=== PATIENT | female | born 1980 | race Caucasian/White ===

== ENCOUNTER 2019-03-28 16:13 | Inpatient (IN) | payer OTHER ==
[~2019-03-28] VITALS: Ht 154.9 cm; Wt 72.0 kg
[2019-03-28] MEDS ORDERED: LIDOCAINE/MYLANTA 40 ML BTL PO STA (17:31)
[2019-03-28] MEDS ORDERED: SOD CHLORIDE 0.9% 1,000 ML IV STA (17:31)
[2019-03-28] MEDS ORDERED: BELLADONNA/PHENOBARBITAL TAB PO STA (17:31)
[2019-03-28] MEDS ORDERED: PYRIDOXINE 50 MG TAB PO ONE (18:00)
[2019-03-28] MEDS ORDERED: ONDANSETRON 4 MG INJ IV STA (19:06)
[2019-03-28] MEDS ORDERED: SOD CHLORIDE 0.9% 1,000 ML IV SCH (19:21)
[2019-03-28] MEDS ORDERED: ACETAMINOPHEN 325 MG TAB PO PRN (19:30)
[2019-03-28] MEDS ORDERED: NACL 0.9% 3 ML SYG IV SCH (19:30)
[2019-03-28] MEDS: METOCLOPRAMIDE 10 MG INJ IV PRN (19:40)
[2019-03-28 20:49] VITALS: Ht 154.9 cm; Wt 72.0 kg
[2019-03-28] MEDS: FAMOTIDINE 20 MG INJ IV SCH (20:55)
[2019-03-28 21:48] VITALS: BP 102/57; PULSE 83; RESP 16
[2019-03-28] MEDS: AL HYDROX/MG HYDROX/SIMETH 30 ML CUP PO PRN (22:02)
--- NOTE | 2019-03-28 23:16 | ERD ---
ER Documentation Chief Complaint Chief Complaint hematemesis x3 days, 11 wks . seen @ [place], referred for admit HPI This is a 39-year-old woman 11 weeks by dates and normal ultrasound performed this morning at another emergency department presenting with continued nausea and vomiting. She states today she has had a couple episodes of pain, blood-tinged emesis. She was seen and evaluated a multiple different EDs over the last few days and states she has received multiple doses of Phenergan, Reglan, Zofran without relief. She denies hematuria or dysuria, no back pain, no fevers or chills, no chest pain or shortness of breath. She does complain of some mild epigastric burning with episodes of vomiting. ROS All systems reviewed and are negative except as per history of present illness. Allergies Allergies: Coded Allergies: No Known Allergy (Unverified , 03/28/19) PMhx/Soc Medical and Surgical Hx: pt denies Medical Hx History of Surgery: Yes (COSMETIC ) Anesthesia Reaction: No Hx Alcohol Use: No Hx Substance Use: No Hx Tobacco Use: No Smoking Status: Never smoker FmHx Family History: No diabetes Physical Exam Vitals Vital Signs Date Temp Pulse Resp B/P (MAP) Pulse Ox O2 O2 Flow FiO2 Time Delivery Rate 03/28/19 62 20 133/62 100 Room Air 18:52 (85) 03/28/19 99.1 61 18 151/68 97 16:18 (95) Physical Exam GENERAL: Well-developed, well-nourished, well-hydrated, appears nauseous, afebrile HEENT: Moist mucous membranes, pink conjunctiva, no cervical spine tenderness or step-off deformities, no goiter, no jaundice or icterus, extraocular movements intact without pain. CARDIAC: Regular rate and rhythm, no murmurs rubs or gallops LUNGS: Clear bilaterally no wheezing crackles or stridor ABDOMEN: Soft nontender, no guarding, no rigidity, no rebound, no psoas sign no obturator sign. SKIN: Warm and dry to touch, no abrasions, contusions, or hematomas, no lacerations, no ecchymosis, no target lesions, and without ulcers EXTREMITIES: No clubbing cyanosis or edema, calves are bilaterally symmetrical, no Homans sign, no popliteal cord sign. Distal pulses equal and bilateral PSYCH: Normal affect without agitation or irritability Result Diagram: 03/28/19183103/28/191831 Results 24 hrs Laboratory Tests Test 03/28/19 18:00 03/28/19 18:25 03/28/19 18:32 POC Beta HCG, Qualitative POSITIVE Urine Color G[place] Urine Clarity SLIGHTLY CLOUDY Urine pH 6.0 Urine Specific [place] 1.030 Urine Ketones 2+ mg/dL Urine Nitrite NEGATIVE mg/dL Urine Bilirubin NEGATIVE mg/dL Urine Urobilinogen NEGATIVE mg/dL Urine Leukocyte Esterase NEGATIVE [place]/ul Urine Microscopic RBC 54 /HPF Urine Microscopic WBC 5 /HPF Urine Squamous Epithelial Cells FEW /HPF Urine Mucus MODERATE /HPF Urine Hemoglobin 2+ mg/dL Urine Glucose 1+ mg/dL Urine Total Protein 2+ mg/dl White Blood Count 12.6 10^3/ul Red Blood Count 3.95 10^6/ul Hemoglobin 11.5 g/dl Hematocrit 33.2 % Mean Corpuscular Volume 84.1 fl Mean Corpuscular Hemoglobin 29.1 pg Mean Corpuscular 34.6 g/dl Hemoglobin Concent Red Cell Distribution Width 12.9 % Platelet Count 198 10^3/UL Mean Platelet Volume 11.6 fl Immature Granulocytes % 0.800 % Neutrophils % 86.2 % Lymphocytes % 8.5 % Monocytes % 4.3 % Eosinophils % 0.0 % Basophils % 0.2 % Nucleated Red Blood Cells % 0.0 /100WBC Immature Granulocytes # 0.100 10^3/ul Neutrophils # 10.9 10^3/ul Lymphocytes # 1.1 10^3/ul Monocytes # 0.5 10^3/ul Eosinophils # 0.0 10^3/ul Basophils # 0.0 10^3/ul Nucleated Red Blood Cells # 0.0 10^3/ul Sodium Level 139 mmol/L Potassium Level 3.8 mmol/L Chloride Level 109 mmol/L Carbon Dioxide Level 19 mmol/L Anion Gap 11 Blood Urea Nitrogen 8 mg/dl Creatinine 0.49 mg/dl Est Glomerular Filtrat > 60 mL/min Rate mL/min Glucose Level 139 mg/dl Calcium Level 8.8 mg/dl Total Bilirubin 0.4 mg/dl Direct Bilirubin 0.00 mg/dl Indirect Bilirubin 0.4 mg/dl Aspartate Amino Transf (AST/SGOT) 52 IU/L Alanine 43 IU/L Aminotransferase (ALT/SGPT) Alkaline Phosphatase 35 IU/L Total Protein 7.6 g/dl Albumin 3.9 g/dl Globulin 3.70 g/dl Albumin/Globulin Ratio 1.05 Lipase 27 U/L Current Medications Medications Dose Sig/Robyn Start Time Status Last (Trade) Ordered Route PRN Stop Time Admin Dose Reason Admin Pyridoxine 50 mg ONCE ONCE 03/28/19 DC 03/28/19 HCl PO 18:00 03/28/19 18:11 (Vitamin B6) 18:01 Sodium 1,000 ml @ Q1H STAT 03/28/19 DC 03/28/19 Chloride 1,000 mls/hr IV 17:31 03/28/19 18:12 18:30 40 ml ONCE STAT 03/28/19 DC 03/28/19 Miscellaneous PO 17:31 03/28/19 18:01 Medication 17:38 (Gi Cocktail (2)) Bell[place]onna/ 2 tab ONCE STAT 03/28/19 DC 03/28/19 Phenobarbital PO 17:31 03/28/19 18:01 () 17:38 Ondansetron 4 mg ONCE STAT 03/28/19 DC HCl (Zofran IV 19:06 03/28/19 Inj) 19:21 Sodium 1,000 ml @ Q20H IV 03/28/19 03/28/19 Chloride 50 mls/hr 19:21 03/29/19 20:51 15:20 Procedures/MDM IV line was established 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 Patient was afebrile I administered pyridoxine 50 mg p.o., a liter normal saline IV, and a GI cocktail p.o. CBC and electrolytes were unremarkable, liver function test within normal limits, test positive, urinalysis negative for infection. Patient symptoms did improve with above therapy although she had a couple more episodes of nausea and vomiting and I did order Zofran IV although patient refused because she states it has been helping her over the last few days. Patient will be admitted to [facility] for continued IV hydration and antiemetic therapy. Patient refused nasogastric tube Departure Diagnosis: Primary Impression: Hyperemesis gravidarum Additional Impressions: Intractable vomiting Vomiting type: unspecified Nausea presence: with nausea Qualified Codes: R11.2 - Nausea with vomiting, unspecified First trimester Ruled Out: Hematemesis Condition: Fair ZOHRABIAN,KEATON MD Mar 28, 2019 23:16
[2019-03-29] MEDS ORDERED: PROMETHAZINE (1.25 MG/ML) 5 ML CUP PO ONE (01:30)
[2019-03-29] MEDS ORDERED: ONDANSETRON 4 MG INJ IV PRN ×2 (01:30→18:00)
[2019-03-29] MEDS: METOCLOPRAMIDE 10 MG INJ IV PRN ×3 (02:07→17:46)
[2019-03-29 02:31] VITALS: BP 136/75; PULSE 60; RESP 18
[2019-03-29] MEDS: AL HYDROX/MG HYDROX/SIMETH 30 ML CUP PO PRN ×2 (05:37→17:46)
--- NOTE | 2019-03-29 06:23 | HP ---
Date/Time of Note Date/Time of Note DATE: 03/29/19 TIME: 06:20 Assessment/Plan VTE Prophylaxis Pharmacological prophylaxis: heparin Lines/Catheters IV Catheter Type (from Nrs): Peripheral IV Urinary Cath still in place: No Assessment/Plan Assessment/Plan 39-year-old female who is 11 weeks here with nausea and vomiting, most likely related to 1. Nausea/vomiting, -induced -Antiemetics -IV hydration 2. Leukocytosis: UA negative -Check urine culture -No empiric antibiotic at this time Result Diagram: 03/29/19 0510 03/28/19 1832 Results 24hrs Laboratory Tests Test 03/28/19 18:00 03/28/19 18:25 03/28/19 18:32 03/29/19 05:10 POC Beta HCG, POSITIVE H Qualitative Urine Color GORDON Urine Clarity SLIGHTLY CLOUDY A Urine pH 6.0 Urine Specific 1.030 [place] Urine Ketones 2+ H Urine Nitrite NEGATIVE Urine Bilirubin NEGATIVE Urine Urobilinogen NEGATIVE Urine Leukocyte NEGATIVE Esterase Urine Microscopic 54 H RBC Urine Microscopic 5 WBC Urine Squamous FEW Epithelial Cells Urine Mucus MODERATE Urine Hemoglobin 2+ H Urine Glucose 1+ H Urine Total 2+ H Protein White Blood Count 12.6 H 14.2 H Red Blood Count 3.95 L 3.64 L Hemoglobin 11.5 L 10.6 L Hematocrit 33.2 L 30.0 L Mean Corpuscular 84.1 82.4 Volume Mean Corpuscular 29.1 29.1 Hemoglobin Mean Corpuscular 34.6 35.3 Hemoglobin Concent Red Cell 12.9 13.1 Distribution Width Platelet Count 198 216 Mean Platelet 11.6 H 12.0 H Volume Immature 0.800 H 0.600 H Granulocytes % Neutrophils % 86.2 H 85.6 H Lymphocytes % 8.5 L 9.5 L Monocytes % 4.3 4.2 Eosinophils % 0.0 0.0 Basophils % 0.2 0.1 Nucleated Red 0.0 0.0 Blood Cells % Immature 0.100 H 0.080 H Granulocytes # Neutrophils # 10.9 H 12.1 H Lymphocytes # 1.1 1.3 Monocytes # 0.5 0.6 Eosinophils # 0.0 0.0 Basophils # 0.0 0.0 Nucleated Red 0.0 0.0 Blood Cells # Sodium Level 139 Potassium Level 3.8 Chloride Level 109 Carbon Dioxide 19 L Level Anion Gap 11 Blood Urea 8 Nitrogen Creatinine 0.49 Est Glomerular > 60 Filtrat Rate mL/min Glucose Level 139 Calcium Level 8.8 Total Bilirubin 0.4 Direct Bilirubin 0.00 Indirect Bilirubin 0.4 Aspartate Amino 52 H Transf (AST/SGOT) Alanine 43 Aminotransferase ( ALT/SGPT) Alkaline 35 L Phosphatase Total Protein 7.6 Albumin 3.9 Globulin 3.70 H Albumin/Globulin 1.05 Ratio Lipase 27 HPI/ROS Admit Date/Time Admit Date/Time Mar 28, 2019 at 19:22 Hx of Present Illness Patient is a 39-year-old female who is 11 weeks who presents the ER complaining of nausea and vomiting x1 months. She was initially seen at [facility] where ultrasound was done which showed 11 weeks gestation. Sh e was sent to our ER because of insurance reason. Denied abdominal pain, fever/chills, shortness of breath. PMH/Family/Social Past Medical History Past Surgical Hx: other Family History Significant Family History: no pertinent family hx Social History Alcohol Use: none Smoking Status: Never smoker Drug Use: none Exam Constitutional: other (No acute distress) Head: normocephalic, atraumatic Eyes: EOMI, PERRL Respiratory: clear to auscultation, normal air movement Cardiovascular: regular rate and rhythm Gastrointestinal: soft Extremities: normal pulses Medications Current Medications Sodium Chloride 1,000 ml @ 50 mls/hr Q20H IV Last administered on 03/28/19at 20:51; Admin Dose 50 MLS/HR; Start 03/28/19 at 19:21; Stop 03/29/19 at 15:20 IV Flush (NS 3 ml) 3 ml PER PROTOCOL IV ; Start 03/28/19 at 19:30 Metoclopramide HCl (Reglan) 10 mg Q6H PRN IV NAUSEA/VOMITING Last administered on 03/29/19at 02:07; Admin Dose 10 MG; Start 03/28/19 at 19:30 Acetaminophen (Tylenol Tab) 650 mg Q6H PRN PO .PAIN 1-3 OR TEMP; Start 03/28/19 at 19:30 Famotidine (Pepcid Iv) 20 mg BID IV Last administered on 03/28/19at 20:55; Admin Dose 20 MG; Start 03/28/19 at 21:00 Al Hydrox/Mg Hydrox/Simethicone (Mag-Al Plus) 30 ml Q6H PRN PO GASTROINTESTINAL UPSET Last administered on 03/29/19at 05:37; Admin Dose 30 ML; Start 03/28/19 at 22:00; Stop 03/29/19 at 22:00 Ondansetron HCl (Zofran Inj) 4 mg Q6H PRN IV NAUSEA AND/OR VOMITING; Start 03/29/19 at 01:30; Stop 03/30/19 at 01:29 Coded Allergies: No Known Allergy (Unverified , 03/28/19) Social History Smoking Status: Former smoker Exam/Review of Systems Vital Signs Vitals Vital Signs Date Temp Pulse Resp B/P (MAP) Pulse Ox O2 O2 Flow FiO2 Time Delivery Rate 03/29/19 98.6 60 18 136/75 98 02:31 (95) 03/28/19 Room Air 21:48 Intake and Output 03/28/19 03/28/19 03/29/19 1515:00 23:00 07:00 IntakeIntake Total 450 ml BalanceBalance 450 ml RAYMOND BOWENS MD Mar 29, 2019 06:23
[2019-03-29 08:36] VITALS: BP 139/89; PULSE 62; RESP 15
[2019-03-29] MEDS: FAMOTIDINE 20 MG INJ IV SCH ×2 (10:19→21:21)
[2019-03-29 13:57] VITALS: BP 139/81; PULSE 62; RESP 16
--- NOTE | 2019-03-29 18:00 | PN ---
Date/Time of Note Date/Time of Note DATE: 03/29/19 TIME: 17:57 Assessment/Plan VTE [place]axis [place] [facility] [place]: 1 [place] [facility] [place] Yes SCD contraindicated: low risk/ambulating Pharmacological prophylaxis: NA/contraindicated Pharm contraindication: low risk/ambulating Lines/Catheters IV [facility] Type [facility] Peripheral IV Urinary Cath still in place: No Assessment/Plan Hospital Course Hospitalist coverage Assessment and plan 1. Vomiting, consider hyperemesis gravidarum syndrome vs gerd. Stable consulted OB -Plan is Zofran, Unison 25mg hs w B6 100 mg; and Unison 1/2 tab q am prn; and banana bag 2. Mild abnormal LFTs, consider Ward check hepatitis panel 3. Past tobacco 4. Anemia S: nausea vomiting, not tolerating diet. Had a little little bit of cheesecake this morning. No fever mild flatus no dyspnea. First . O: Vital signs stable Physical exam No pallor icterus Regular Clear Benign gravid? No rigidity rebound guarding no flank ecchymosis No edema Result Diagram: 03/29/19 0510 03/29/19 0509 Results 24hrs Laboratory Tests Test 03/28/19 18:00 03/28/19 18:25 03/28/19 18:32 03/29/19 05:09 POC Beta HCG, POSITIVE H Qualitative Urine Color GORDON Urine Clarity SLIGHTLY CLOUDY A Urine pH 6.0 Urine Specific 1.030 [place] Urine Ketones 2+ H Urine Nitrite NEGATIVE Urine Bilirubin NEGATIVE Urine Urobilinogen NEGATIVE Urine Leukocyte NEGATIVE Esterase Urine Microscopic 54 H RBC Urine Microscopic 5 WBC Urine Squamous FEW Epithelial Cells Urine Mucus MODERATE Urine Hemoglobin 2+ H Urine Glucose 1+ H Urine Total 2+ H Protein White Blood Count 12.6 H Red Blood Count 3.95 L Hemoglobin 11.5 L Hematocrit 33.2 L Mean Corpuscular 84.1 Volume Mean Corpuscular 29.1 Hemoglobin Mean Corpuscular 34.6 Hemoglobin Concent Red Cell 12.9 Distribution Width Platelet Count 198 Mean Platelet 11.6 H Volume Immature 0.800 H Granulocytes % Neutrophils % 86.2 H Lymphocytes % 8.5 L Monocytes % 4.3 Eosinophils % 0.0 Basophils % 0.2 Nucleated Red 0.0 Blood Cells % Immature 0.100 H Granulocytes # Neutrophils # 10.9 H Lymphocytes # 1.1 Monocytes # 0.5 Eosinophils # 0.0 Basophils # 0.0 Nucleated Red 0.0 Blood Cells # Sodium Level 139 136 Potassium Level 3.8 3.3 L Chloride Level 109 108 Carbon Dioxide 19 L 18 L Level Anion Gap 11 10 Blood Urea 8 7 Nitrogen Creatinine 0.49 0.49 Est Glomerular > 60 > 60 Filtrat Rate mL/min Glucose Level 139 133 Calcium Level 8.8 8.6 Total Bilirubin 0.4 0.4 Direct Bilirubin 0.00 0.00 Indirect Bilirubin 0.4 0.4 Aspartate Amino 52 H 92 H Transf (AST/SGOT) Alanine 43 79 H Aminotransferase ( ALT/SGPT) Alkaline 35 L 38 L Phosphatase Total Protein 7.6 6.7 Albumin 3.9 3.5 Globulin 3.70 H 3.20 Albumin/Globulin 1.05 1.09 Ratio Lipase 27 Hemoglobin A1c 5.2 Magnesium Level 2.3 Triglycerides 84 Level Cholesterol Level 183 LDL Cholesterol, 96 Calculated HDL Cholesterol 70 Cholesterol/HDL 2.6 Ratio Thyroid 1.240 Stimulating Hormone (TSH) Test 03/29/19 05:10 White Blood Count 14.2 H Red Blood Count 3.64 L Hemoglobin 10.6 L Hematocrit 30.0 L Mean Corpuscular 82.4 Volume Mean Corpuscular 29.1 Hemoglobin Mean Corpuscular 35.3 Hemoglobin Concent Red Cell 13.1 Distribution Width Platelet Count 216 Mean Platelet 12.0 H Volume Immature 0.600 H Granulocytes % Neutrophils % 85.6 H Lymphocytes % 9.5 L Monocytes % 4.2 Eosinophils % 0.0 Basophils % 0.1 Nucleated Red 0.0 Blood Cells % Immature 0.080 H Granulocytes # Neutrophils # 12.1 H Lymphocytes # 1.3 Monocytes # 0.6 Eosinophils # 0.0 Basophils # 0.0 Nucleated Red 0.0 Blood Cells # Exam/Review of Systems Exam Vitals Vital Signs Date Temp Pulse Resp B/P (MAP) Pulse Ox O2 O2 Flow FiO2 Time Delivery Rate 03/29/19 98.7 62 16 139/81 100 Room Air 13:57 (100) Intake and Output 03/28/19 03/28/19 03/29/19 1515:00 23:00 07:00 IntakeIntake Total 450 ml BalanceBalance 450 ml Results Results 24hrs Laboratory Tests Test 03/28/19 18:00 03/28/19 18:25 03/28/19 18:32 03/29/19 05:09 POC Beta HCG, POSITIVE H Qualitative Urine Color [place] Urine Clarity SLIGHTLY CLOUDY A Urine pH 6.0 Urine Specific 1.030 [place] Urine Ketones 2+ H Urine Nitrite NEGATIVE Urine Bilirubin NEGATIVE Urine Urobilinogen NEGATIVE Urine Leukocyte NEGATIVE Esterase Urine Microscopic 54 H RBC Urine Microscopic 5 WBC Urine Squamous FEW Epithelial Cells Urine Mucus MODERATE Urine Hemoglobin 2+ H Urine Glucose 1+ H Urine Total 2+ H Protein White Blood Count 12.6 H Red Blood Count 3.95 L Hemoglobin 11.5 L Hematocrit 33.2 L Mean Corpuscular 84.1 Volume Mean Corpuscular 29.1 Hemoglobin Mean Corpuscular 34.6 Hemoglobin Concent Red Cell 12.9 Distribution Width Platelet Count 198 Mean Platelet 11.6 H Volume Immature 0.800 H Granulocytes % Neutrophils % 86.2 H Lymphocytes % 8.5 L Monocytes % 4.3 Eosinophils % 0.0 Basophils % 0.2 Nucleated Red 0.0 Blood Cells % Immature 0.100 H Granulocytes # Neutrophils # 10.9 H Lymphocytes # 1.1 Monocytes # 0.5 Eosinophils # 0.0 Basophils # 0.0 Nucleated Red 0.0 Blood Cells # Sodium Level 139 136 Potassium Level 3.8 3.3 L Chloride Level 109 108 Carbon Dioxide 19 L 18 L Level Anion Gap 11 10 Blood Urea 8 7 Nitrogen Creatinine 0.49 0.49 Est Glomerular > 60 > 60 Filtrat Rate mL/min Glucose Level 139 133 Calcium Level 8.8 8.6 Total Bilirubin 0.4 0.4 Direct Bilirubin 0.00 0.00 Indirect Bilirubin 0.4 0.4 Aspartate Amino 52 H 92 H Transf (AST/SGOT) Alanine 43 79 H Aminotransferase ( ALT/SGPT) Alkaline 35 L 38 L Phosphatase Total Protein 7.6 6.7 Albumin 3.9 3.5 Globulin 3.70 H 3.20 Albumin/Globulin 1.05 1.09 Ratio Lipase 27 Hemoglobin A1c 5.2 Magnesium Level 2.3 Triglycerides 84 Level Cholesterol Level 183 LDL Cholesterol, 96 Calculated HDL Cholesterol 70 Cholesterol/HDL 2.6 Ratio Thyroid 1.240 Stimulating Hormone (TSH) Test 03/29/19 05:10 White Blood Count 14.2 H Red Blood Count 3.64 L Hemoglobin 10.6 L Hematocrit 30.0 L Mean Corpuscular 82.4 Volume Mean Corpuscular 29.1 Hemoglobin Mean Corpuscular 35.3 Hemoglobin Concent Red Cell 13.1 Distribution Width Platelet Count 216 Mean Platelet 12.0 H Volume Immature 0.600 H Granulocytes % Neutrophils % 85.6 H Lymphocytes % 9.5 L Monocytes % 4.2 Eosinophils % 0.0 Basophils % 0.1 Nucleated Red 0.0 Blood Cells % Immature 0.080 H Granulocytes # Neutrophils # 12.1 H Lymphocytes # 1.3 Monocytes # 0.6 Eosinophils # 0.0 Basophils # 0.0 Nucleated Red 0.0 Blood Cells # Medications Medication Current Medications IV Flush (NS 3 ml) 3 ml PER PROTOCOL IV ; Start 03/28/19 at 19:30 Acetaminophen (Tylenol Tab) 650 mg Q6H PRN PO .PAIN 1-3 OR TEMP Last administer ed on 03/29/19at 10:19; Admin Dose 650 MG; Start 03/28/19 at 19:30 Famotidine (Pepcid Iv) 20 mg BID IV Last administered on 03/29/19at 10:19; Admin Dose 20 MG; Start 03/28/19 at 21:00 Al Hydrox/Mg Hydrox/Simethicone (Mag-Al Plus) 30 ml Q6H PRN PO GASTROINTESTINAL UPSET Last administered on 03/29/19at 17:46; Admin Dose 30 ML; Start 03/28/19 at 22:00; Stop 03/29/19 at 22:00 Ondansetron HCl (Zofran Inj) 4 mg Q6H PRN IV NAUSEA AND/OR VOMITING; Start 03/29/19 at 01:30; Stop 03/30/19 at 01:29 Multivitamins 10 ml/Thiamine HCl 100 mg/Folic Acid 1 mg/Sodium Chloride 1,011.2 ml @ 125 mls/ hr DAILY@09 IVPB ; Start 03/29/19 at 18:00; Status UNV Pyridoxine HCl (Vitamin B6) 100 mg DAILY PO ; Start 03/29/19 at 18:00; Status UNV Ondansetron HCl (Zofran Inj) 4 mg Q4H PRN IV NAUSEA AND/OR VOMITING; Start 03/29/19 at 18:00; Status UNV Dextrose/Sodium Chloride 1,000 ml @ 75 mls/hr [id number] IV ; Start 03/29/19 at 18 :00; Status UNV ZHENG KAUR MD Mar 29, 2019 18:00
[2019-03-29] MEDS: DEXTROSE 5%-0.45% NACL 1,000 ML IV SCH (18:36)
[2019-03-29 20:38] VITALS: BP 153/82; PULSE 61; RESP 16
[2019-03-29] MEDS: MULTIVITAMINS 10 ML, THIAMINE 100 MG, FOLIC ACID 1 MG in SOD CHLORIDE 0.9% 1,000 ML IVPB SCH (20:46)
[2019-03-29] MEDS: PYRIDOXINE 50 MG TAB PO SCH (22:00)
[2019-03-30] MEDS ORDERED: METOCLOPRAMIDE 10 MG INJ IV ONE
[2019-03-30 02:01] VITALS: BP 151/75; PULSE 62; RESP 16
[2019-03-30] MEDS: DEXTROSE 5%-0.45% NACL 1,000 ML IV SCH ×2 (07:20→20:40)
[2019-03-30 08:36] VITALS: BP 138/68; PULSE 72; RESP 15
[2019-03-30] MEDS: PYRIDOXINE 50 MG TAB PO SCH (08:52)
[2019-03-30] MEDS: FAMOTIDINE 20 MG INJ IV SCH ×2 (08:52→21:47)
[2019-03-30] MEDS: MULTIVITAMINS 10 ML, THIAMINE 100 MG, FOLIC ACID 1 MG in SOD CHLORIDE 0.9% 1,000 ML IVPB SCH (08:53)
--- NOTE | 2019-03-30 12:32 | PN ---
Date/Time of Note Date/Time of Note DATE: 03/30/19 TIME: 12:31 Assessment/Plan VTE Prophylaxis Risk score (from [facility])>0 risk: 1 [place] [facility] [place] SCD contraindicated: low risk/ambulating Pharmacological prophylaxis: NA/contraindicated Pharm contraindication: low risk/ambulating Lines/Catheters IV [facility] Type ([facility] Peripheral IV Urinary Cath still in place: No Assessment/Plan Hospital Course Hospitalist coverage Assessment and plan 1. Vomiting, consider hyperemesis gravidarum syndrome vs gerd. Stable consulted OB. -Plan is Zofran, Unison 25mg hs w B6 100 mg; and Unison 1/2 tab q am prn; and banana bag 2. Mild abnormal LFTs, consider Ward check hepatitis panel. HIDA scan ordered 3. Past tobacco 4. Anemia 5. Cholelithiasis/gallbladder sludge S: 03/29 nausea vomiting, not tolerating diet. Had a little little bit of cheesecake this morning. No fever mild flatus no dyspnea. First . 03/30: Nausea, was n.p.o. for ultrasound. Refused Zofran. Sp counseling. O: Vital signs stable Physical exam No pallor icterus Regular Clear Benign gravid? No r/r/g; no flank ecchymosis No edema Result Diagram: 03/30/1951303/30/1914 Results 24hrs Laboratory Tests Test 03/30/19 05:14 White Blood Count 9.7 # Red Blood Count 3.57 L Hemoglobin 10.4 L Hematocrit 29.7 L Mean Corpuscular Volume 83.2 Mean Corpuscular Hemoglobin 29.1 Mean Corpuscular Hemoglobin Concent 35.0 Red Cell Distribution Width 12.8 Platelet Count 196 Mean Platelet Volume 11.6 H Immature Granulocytes % 1.100 H Neutrophils % 77.0 Lymphocytes % 16.1 Monocytes % 5.4 Eosinophils % 0.1 Basophils % 0.3 Nucleated Red Blood Cells % 0.0 Immature Granulocytes # 0.110 H Neutrophils # 7.4 Lymphocytes # 1.6 Monocytes # 0.5 Eosinophils # 0.0 Basophils # 0.0 Nucleated Red Blood Cells # 0.0 Sodium Level 134 L Potassium Level 3.0 L Chloride Level 105 Carbon Dioxide Level 19 L Anion Gap 10 Blood Urea Nitrogen 4 L Creatinine 0.43 L Est Glomerular Filtrat Rate mL/min > 60 Glucose Level 122 Calcium Level 7.9 L Phosphorus Level 2.2 L Magnesium Level 2.2 Total Bilirubin 0.5 Direct Bilirubin 0.00 Indirect Bilirubin 0.5 Aspartate Amino Transf (AST/SGOT) 161 H Alanine Aminotransferase (ALT/SGPT) 204 H Alkaline Phosphatase 37 L Total Protein 6.3 Albumin 3.2 L Globulin 3.10 Albumin/Globulin Ratio 1.03 Lipase 43 Thyroid Stimulating Hormone (TSH) 1.020 Hepatitis B Surface Antigen NEGATIVE Hepatitis B Core Total Antibody NEGATIVE Hepatitis C Antibody NEGATIVE Exam/Review of Systems Exam Vitals Vital Signs Date Temp Pulse Resp B/P (MAP) Pulse Ox O2 O2 Flow FiO2 Time Delivery Rate 03/30/19 99.0 72 15 138/68 96 08:36 (91) 03/29/19 Room Air 13:57 Intake and Output 03/29/19 03/29/19 03/30/19 1515:00 23:00 07:00 IntakeIntake Total 1050 ml 450 ml 1129.2 ml BalanceBalance 1050 ml 450 ml 1129.2 ml Results Results 24hrs Laboratory Tests Test 03/30/19 05:14 White Blood Count 9.7 # Red Blood Count 3.57 L Hemoglobin 10.4 L Hematocrit 29.7 L Mean Corpuscular Volume 83.2 Mean Corpuscular Hemoglobin 29.1 Mean Corpuscular Hemoglobin Concent 35.0 Red Cell Distribution Width 12.8 Platelet Count 196 Mean Platelet Volume 11.6 H Immature Granulocytes % 1.100 H Neutrophils % 77.0 Lymphocytes % 16.1 Monocytes % 5.4 Eosinophils % 0.1 Basophils % 0.3 Nucleated Red Blood Cells % 0.0 Immature Granulocytes # 0.110 H Neutrophils # 7.4 Lymphocytes # 1.6 Monocytes # 0.5 Eosinophils # 0.0 Basophils # 0.0 Nucleated Red Blood Cells # 0.0 Sodium Level 134 L Potassium Level 3.0 L Chloride Level 105 Carbon Dioxide Level 19 L Anion Gap 10 Blood Urea Nitrogen 4 L Creatinine 0.43 L Est Glomerular Filtrat Rate mL/min > 60 Glucose Level 122 Calcium Level 7.9 L Phosphorus Level 2.2 L Magnesium Level 2.2 Total Bilirubin 0.5 Direct Bilirubin 0.00 Indirect Bilirubin 0.5 Aspartate Amino Transf (AST/SGOT) 161 H Alanine Aminotransferase (ALT/SGPT) 204 H Alkaline Phosphatase 37 L Total Protein 6.3 Albumin 3.2 L Globulin 3.10 Albumin/Globulin Ratio 1.03 Lipase 43 Thyroid Stimulating Hormone (TSH) 1.020 Hepatitis B Surface Antigen NEGATIVE Hepatitis B Core Total Antibody NEGATIVE Hepatitis C Antibody NEGATIVE Medications Medication Current Medications IV Flush (NS 3 ml) 3 ml PER PROTOCOL IV ; Start 03/28/19 at 19:30 Acetaminophen (Tylenol Tab) 650 mg Q6H PRN PO .PAIN 1-3 OR TEMP Last administer ed on 03/29/19 10:19; Admin Dose 650 MG; Start 03/28/19 at 19:30 Famotidine (Pepcid Iv) 20 mg BID IV Last administered on 03/30/19 08:52; Admin Dose 20 MG; Start 03/28/19 at 21:00 Multivitamins 10 ml/Thiamine HCl 100 mg/Folic Acid 1 mg/Sodium Chloride 1,011.2 ml @ 125 mls/ hr DAILY@09 IVPB Last administered on 03/30/19 08:53; Admin Dose 125 MLS/HR; Start 03/29/19 at 18:00 Pyridoxine HCl (Vitamin B6) 100 mg DAILY PO Last administered on 03/30/19 08:52; Admin Dose 100 MG; Start 03/29/19 at 18:00 Ondansetron HCl (Zofran Inj) 4 mg Q4H PRN IV NAUSEA AND/OR VOMITING; Start 03/29/19 at 18:00 Dextrose/Sodium Chloride 1,000 ml @ 75 mls/hr [id number] IV Last administered on 03/29/19 18:36; Admin Dose 75 MLS/HR; Start 03/29/19 at 18:00 ZHENG KAUR MD Mar 30, 2019 12:32
[2019-03-30] MEDS ORDERED: POTASSIUM CHLORIDE 100 ML IVPB ONE (13:00)
[2019-03-30] MEDS: PROCHLORPERAZINE 10 MG INJ IM SCH ×2 (13:51→21:51)
[2019-03-30] MEDS ORDERED: DOCUSATE SODIUM 100 MG CAP PO PRN (15:00)
[2019-03-30] MEDS ORDERED: BISACODYL (EC) 5 MG TAB PO PRN (15:00)
[2019-03-31] MEDS: DEXTROSE 5%-0.45% NACL 1,000 ML IV SCH ×2 (02:41→23:20)
[2019-03-31] MEDS: PROCHLORPERAZINE 10 MG INJ IM SCH ×3 (05:55→22:23)
[2019-03-31 07:59] VITALS: BP 128/75; PULSE 75; RESP 18
[2019-03-31] MEDS: PYRIDOXINE 50 MG TAB PO SCH (08:32)
[2019-03-31] MEDS: FAMOTIDINE 20 MG INJ IV SCH (08:32)
[2019-03-31] MEDS: MULTIVITAMINS 10 ML, THIAMINE 100 MG, FOLIC ACID 1 MG in SOD CHLORIDE 0.9% 1,000 ML IVPB SCH (08:33)
--- NOTE | 2019-03-31 13:44 | CONS ---
Assessment/Plan Assessment/Plan Assessment/Plan (Daily) Assessment: Hematemesis Nausea/vomiting likely due to hyperemesis gravidarum Gallbladder sludge on ultrasound Transaminitis -hepatitis serologies negative Plan: Start Reglan 10 mg IV every 6 Start Protonix daily Start Carafate 4 times daily Advance diet as tolerated Autoimmune floor waxer LFTs Patient seen in collaboration Dr. Oleary Consultation Date/Type/Reason Admit Date/Time Mar 28, 2019 at 19:22 Date of Consultation: Mar 31, 2019 Type of Consult GI Reason for Consultation Transaminitis/nausea vomiting Date/Time of Note DATE: 03/31/19 TIME: 13:30 Hx of Present Illness This is a 39-year-old female of 10 weeks gestation with a history of hyperemesis gravidarum who was admitted for nausea and vomiting. Patient has been having nausea and vomiting throughout her whole with worsening of the symptoms in the past 4 days when she had an episode of hematemesis. Bleeding has stopped 4 days ago. Patient is improving. She was able to eat banana today. Blood work shows transaminitis with gallbladder sludge findings on imaging. There is no evidence of cholecystitis or pericholecystic fluid. Hepatitis serology was negative. Currently there is no evidence of nausea, vomiting, hematemesis, constipation or diarrhea. Patient denies any history of endoscopic interventions or any GI complaints prior to . Patient refuses endoscopic interventions. We will start the patient on Reglan, PPI and Carafate. Advance diet as tolerated. Gastrointestinal: no complaints (See HPI) Past Medical History Medications Current Medications IV Flush (NS 3 ml) 3 ml PER PROTOCOL IV ; Start 03/28/19 at 19:30 Acetaminophen (Tylenol Tab) 650 mg Q6H PRN PO .PAIN 1-3 OR TEMP Last administered on 03/29/19at 10:19; Admin Dose 650 MG; Start 03/28/19 at 19:30 Famotidine (Pepcid Iv) 20 mg BID IV Last administered on 03/31/19at 08:32; Admin Dose 20 MG; Start 03/28/19 at 21:00 Multivitamins 10 ml/Thiamine HCl 100 mg/Folic Acid 1 mg/Sodium Chloride 1,011.2 ml @ 125 mls/ hr DAILY@09 IVPB Last administered on 03/31/19at 08:33; Admin Dose 125 MLS/HR; Start 03/29/19 at 18:00 Pyridoxine HCl (Vitamin B6) 100 mg DAILY PO Last administered on 03/31/19at 08:32; Admin Dose 100 MG; Start 03/29/19 at 18:00 Ondansetron HCl (Zofran Inj) 4 mg Q4H PRN IV NAUSEA AND/OR VOMITING; Start at 18:00 Dextrose/Sodium Chloride 1,000 ml @ 75 mls/hr [id number] IV Last administered on 03/31/19at 02:41; Admin Dose 75 MLS/HR; Start 03/29/19 at 18:00 Prochlorperazine (Compazine Inj) 5 mg Q8 IM Last administered on 03/31/19at 05:55; Admin Dose 5 MG; Start 03/30/19 at 14:00 Docusate Sodium (Colace) 200 mg BID PRN PO CONSTIPATION; Start 03/30/19 at 15:00 Bisacodyl (Dulcolax) 10 mg DAILY PRN PO CONSTIPATION; Start 03/30/19 at 15:00 Allergies: Coded Allergies: No Known Allergy (Unverified , 03/28/19) Social History Smoking Status: Former smoker Exam/Review of Systems Exam Vitals Vital Signs Date Temp Pulse Resp B/P (MAP) Pulse Ox O2 O2 Flow FiO2 Time Delivery Rate 03/31/19 98.9 75 18 128/75 98 07:59 (92) 03/29/19 Room Air 13:57 Intake and Output 03/30/19 03/30/19 03/31/19 1515:00 23:00 07:00 IntakeIntake Total 400 ml 836.2 ml OutputOutput Total 100 ml BalanceBalance 400 ml 736.2 ml Exam PHYSICAL EXAMINATION: GENERAL: Well developed, well nourished, alert & oriented x 3, in no acute distress SKIN: No lesions, no stigmata chronic liver disease, no evidence of bleeding diathesis LYMPHATIC: No palpable lymphadenopathy. HEAD: Normocephalic, atraumatic, no tenderness. EYES: Pupils equal reactive to light and accommodation, full extraocular movements, sclera clear, non-icteric, no discharge. EARS/NOSE AND THROAT: Ears normal, nose normal, oropharynx normal, oral membranes well hydrated without lesions. NECK: Supple, no masses, thyroid normal, JVP within normal limits, carotids normal without bruits. CHEST: Inspection within normal limits. CARDIOVASCULAR: Heart: Regular rate and rhythm, no murmurs, gallops or rubs. Peripheral pulses present within normal limits, no cyanosis, clubbing or edemas. No pulsatile abdominal mass RESPIRATORY: Lungs clear to auscultation and percussion, no wheezing, no rubs GASTROINTESTINAL AND LIVER: Abdomen: Soft, epigastric tenderness, abdomen, non-distended, no hernias, no masses, no organomegaly, no ascites, no guarding, no rebound tenderness, normoactive bowel sounds. Rectal: Deferred. GENITOURINARY: Female genitalia within normal limits. EXTREMITIES: No cyanosis, clubbing or edema. Results Result Diagram: 03/31/19 0500 03/31/19 0500 Results 24hrs Laboratory Tests Test 03/31/19 05:00 White Blood Count 11.6 H Red Blood Count 4.35 # Hemoglobin 12.4 Hematocrit 35.1 L Mean Corpuscular Volume 80.7 L Mean Corpuscular Hemoglobin 28.5 L Mean Corpuscular Hemoglobin Concent 35.3 Red Cell Distribution Width 13.0 Platelet Count 254 # Mean Platelet Volume 11.8 H Immature Granulocytes % 0.900 H Neutrophils % 73.4 Lymphocytes % 20.1 Monocytes % 5.1 Eosinophils % 0.2 Basophils % 0.3 Nucleated Red Blood Cells % 0.0 Immature Granulocytes # 0.110 H Neutrophils # 8.5 H Lymphocytes # 2.3 Monocytes # 0.6 Eosinophils # 0.0 Basophils # 0.0 Nucleated Red Blood Cells # 0.0 Sodium Level 135 Potassium Level 3.1 L Chloride Level 106 Carbon Dioxide Level 17 L Anion Gap 12 Blood Urea Nitrogen 5 L Creatinine 0.54 Est Glomerular Filtrat Rate mL/min > 60 Glucose Level 114 Calcium Level 8.3 L Magnesium Level 2.1 Total Bilirubin 0.5 Direct Bilirubin 0.00 Indirect Bilirubin 0.5 Aspartate Amino Transf (AST/SGOT) 272 H Alanine Aminotransferase (ALT/SGPT) 444 H Alkaline Phosphatase 51 Total Protein 7.3 # Albumin 3.7 Globulin 3.60 H Albumin/Globulin Ratio 1.02 Lipase 72 Medications Medication Current Medications IV Flush (NS 3 ml) 3 ml PER PROTOCOL IV ; Start 03/28/19 at 19:30 Acetaminophen (Tylenol Tab) 650 mg Q6H PRN PO .PAIN 1-3 OR TEMP Last administered on 03/29/19 10:19; Admin Dose 650 MG; Start 03/28/19 at 19:30 Famotidine (Pepcid Iv) 20 mg BID IV Last administered on 03/31/19 08:32; Admin Dose 20 MG; Start 03/28/19 at 21:00 Multivitamins 10 ml/Thiamine HCl 100 mg/Folic Acid 1 mg/Sodium Chloride 1,011.2 ml @ 125 mls/ hr DAILY@09 IVPB Last administered on 03/31/19at 08:33; Admin Dose 125 MLS/HR; Start 03/29/19 at 18:00 Pyridoxine HCl (Vitamin B6) 100 mg DAILY PO Last administered on 03/31/19 08:32; Admin Dose 100 MG; Start 03/29/19 at 18:00 Ondansetron HCl (Zofran Inj) 4 mg Q4H PRN IV NAUSEA AND/OR VOMITING; Start 03/29/19 at 18:00 Dextrose/Sodium Chloride 1,000 ml @ 75 mls/hr [id number] IV Last administered on 03/31/19at 02:41; Admin Dose 75 MLS/HR; Start 03/29/19 at 18:00 Prochlorperazine (Compazine Inj) 5 mg Q8 IM Last administered on 03/31/19 05:55; Admin Dose 5 MG; Start 03/30/19 at 14:00 Docusate Sodium (Colace) 200 mg BID PRN PO CONSTIPATION; Start 03/30/19 at 15:00 Bisacodyl (Dulcolax) 10 mg DAILY PRN PO CONSTIPATION; Start 03/30/19 at 15:00 SELENA VILLATORO NP Mar 31, 2019 13:41
[2019-03-31] MEDS: METOCLOPRAMIDE 10 MG INJ IV SCH ×2 (14:00→17:52)
[2019-03-31 14:30] VITALS: BP 121/65; PULSE 77; RESP 18
--- NOTE | 2019-03-31 15:46 | PN ---
Date/Time of Note Date/Time of Note DATE: 03/31/19 TIME: 15:44 Assessment/Plan VTE Prophylaxis Risk score (from Ns)>0 risk: 0 SCD applied (from Ns): No SCD contraindicated: low risk/ambulating Pharmacological prophylaxis: NA/contraindicated Pharm contraindication: low risk/ambulating Lines/Catheters IV C[facility]ter Type [facility]from [facility] Peripheral IV Urinary Cath still in place: No Assessment/Plan Hospital Course Hospitalist coverage Assessment and plan 1. Vomiting, consider hyperemesis gravidarum syndrome vs gerd. Stable consulted OB. -Plan is Zofran, Unison 25mg hs w B6 100 mg; and Unison 1/2 tab q am prn; and banana bag. pharmacy refused to agree w dispensing otc therapy 2. Mild abnormal LFTs, consider Ward check hepatitis panel. appreciate gi assistance 3. Past tobacco 4. Anemia 5. Cholelithiasis/gallbladder sludge S: 03/29 nausea vomiting, not tolerating diet. Had a little little bit of cheesecake this morning. No fever mild flatus no dyspnea. First . 03/30: Nausea, was n.p.o. for ultrasound. Refused Zofran. Sp counseling. 03/31: less n/v. not eating much. no bm. O: Vss Physical exam No pallor icterus Regular Clear Benign gravid? No r/r/g; no flank ecchymosis No edema Result Diagram: 03/31/19 0500 03/31/19 0500 Results 24hrs Laboratory Tests Test 03/31/19 05:00 White Blood Count 11.6 H Red Blood Count 4.35 # Hemoglobin 12.4 Hematocrit 35.1 L Mean Corpuscular Volume 80.7 L Mean Corpuscular Hemoglobin 28.5 L Mean Corpuscular Hemoglobin Concent 35.3 Red Cell Distribution Width 13.0 Platelet Count 254 # Mean Platelet Volume 11.8 H Immature Granulocytes % 0.900 H Neutrophils % 73.4 Lymphocytes % 20.1 Monocytes % 5.1 Eosinophils % 0.2 Basophils % 0.3 Nucleated Red Blood Cells % 0.0 Immature Granulocytes # 0.110 H Neutrophils # 8.5 H Lymphocytes # 2.3 Monocytes # 0.6 Eosinophils # 0.0 Basophils # 0.0 Nucleated Red Blood Cells # 0.0 Sodium Level 135 Potassium Level 3.1 L Chloride Level 106 Carbon Dioxide Level 17 L Anion Gap 12 Blood Urea Nitrogen 5 L Creatinine 0.54 Est Glomerular Filtrat Rate mL/min > 60 Glucose Level 114 Calcium Level 8.3 L Magnesium Level 2.1 Total Bilirubin 0.5 Direct Bilirubin 0.00 Indirect Bilirubin 0.5 Aspartate Amino Transf (AST/SGOT) 272 H Alanine Aminotransferase (ALT/SGPT) 444 H Alkaline Phosphatase 51 Total Protein 7.3 # Albumin 3.7 Globulin 3.60 H Albumin/Globulin Ratio 1.02 Lipase 72 Exam/Review of Systems Exam Vitals Vital Signs Date Temp Pulse Resp B/P (MAP) Pulse Ox O2 O2 Flow FiO2 Time Delivery Rate 03/31/19 98.3 77 18 121/65 95 14:30 (83) 03/29/19 Room Air 13:57 Intake and Output 03/30/19 03/30/19 03/31/19 1515:00 23:00 07:00 IntakeIntake Total 400 ml 836.2 ml OutputOutput Total 100 ml BalanceBalance 400 ml 736.2 ml Results Results 24hrs Laboratory Tests Test 03/31/19 05:00 White Blood Count 11.6 H Red Blood Count 4.35 # Hemoglobin 12.4 Hematocrit 35.1 L Mean Corpuscular Volume 80.7 L Mean Corpuscular Hemoglobin 28.5 L Mean Corpuscular Hemoglobin Concent 35.3 Red Cell Distribution Width 13.0 Platelet Count 254 # Mean Platelet Volume 11.8 H Immature Granulocytes % 0.900 H Neutrophils % 73.4 Lymphocytes % 20.1 Monocytes % 5.1 Eosinophils % 0.2 Basophils % 0.3 Nucleated Red Blood Cells % 0.0 Immature Granulocytes # 0.110 H Neutrophils # 8.5 H Lymphocytes # 2.3 Monocytes # 0.6 Eosinophils # 0.0 Basophils # 0.0 Nucleated Red Blood Cells # 0.0 Sodium Level 135 Potassium Level 3.1 L Chloride Level 106 Carbon Dioxide Level 17 L Anion Gap 12 Blood Urea Nitrogen 5 L Creatinine 0.54 Est Glomerular Filtrat Rate mL/min > 60 Glucose Level 114 Calcium Level 8.3 L Magnesium Level 2.1 Total Bilirubin 0.5 Direct Bilirubin 0.00 Indirect Bilirubin 0.5 Aspartate Amino Transf (AST/SGOT) 272 H Alanine Aminotransferase (ALT/SGPT) 444 H Alkaline Phosphatase 51 Total Protein 7.3 # Albumin 3.7 Globulin 3.60 H Albumin/Globulin Ratio 1.02 Lipase 72 Medications Medication Current Medications IV Flush (NS 3 ml) 3 ml PER PROTOCOL IV ; Start 03/28/19 at 19:30 Acetaminophen (Tylenol Tab) 650 mg Q6H PRN PO .PAIN 1-3 OR TEMP Last administered on 03/29/19at 10:19; Admin Dose 650 MG; Start 03/28/19 at 19:30 Famotidine (Pepcid Iv) 20 mg BID IV Last administered on 03/31/19at 08:32; Admin Dose 20 MG; Start 03/28/19 at 21:00 Multivitamins 10 ml/Thiamine HCl 100 mg/Folic Acid 1 mg/Sodium Chloride 1,011.2 ml @ 125 mls/ hr DAILY@09 IVPB Last administered on 03/31/19at 08:33; Admin Dose 125 MLS/HR; Start 03/29/19 at 18:00 Pyridoxine HCl (Vitamin B6) 100 mg DAILY PO Last administered on 03/31/19at 08:32; Admin Dose 100 MG; Start 03/29/19 at 18:00 Ondansetron HCl (Zofran Inj) 4 mg Q4H PRN IV NAUSEA AND/OR VOMITING; Start 03/29/19 at 18:00 Dextrose/Sodium Chloride 1,000 ml @ 75 mls/hr [id number] IV Last administered on 03/31/19at 02:41; Admin Dose 75 MLS/HR; Start 03/29/19 at 18:00 Prochlorperazine (Compazine Inj) 5 mg Q8 IM Last administered on 03/31/19at 15:10; Admin Dose 5 MG; Start 03/30/19 at 14:00 Docusate Sodium (Colace) 200 mg BID PRN PO CONSTIPATION; Start 03/30/19 at 15:00 Bisacodyl (Dulcolax) 10 mg DAILY PRN PO CONSTIPATION; Start 03/30/19 at 15:00 Metoclopramide HCl (Reglan) 10 mg Q6 IV Last administered on 03/31/19at 14:00; Admin Dose 10 MG; Start 03/31/19 at 14:00 Pantoprazole (Protonix Tab) 40 mg DAILY@06 PO ; Start 04/01/19 at 06:00 Sucralfate (Carafate Susp) 1 gm QID PO ; Start 03/31/19 at 17:00 ZHENG KAUR MD Mar 31, 2019 15:46
[2019-03-31] MEDS: SUCRALFATE (100 MG/ML) 10ML CUP PO SCH ×2 (17:52→21:00)
[2019-03-31] MEDS: POTASSIUM CHLORIDE 20 MEQ POWDER FOR ORAL SOLN PO SCH ×2 (17:56→21:00)
--- NOTE | 2019-03-31 18:42 | CONS ---
Assessment/Plan Assessment/Plan Hospital Course (Demo Recall) IUP at 11 weeks and 5 days Nausea and vomiting of No evidence of thyroid abnormality. Thyroid labs are normal. Transaminitis, worsening. Ultrasound consistent with sludging of gallbladder. Recommended hepatitis labs as well as GI consultation. Cannot rule out gallstone complicated nausea and vomiting of . Symptoms improved with Zofran and Reglan. Patient reports Reglan helped the most with her symptoms. I discussed with patient about dietary advice. Barnes diet advised including applesauce rice and toast and banana and small portions more frequent meals instead of larger 3 days of meals. She likely benefit from nutritional dietary consultation in the hospital as well Continue follow-up Problems: (1) Hematemesis Status: Acute Qualifiers: Qualified Codes: K92.0 - Hematemesis (2) Hyperemesis gravidarum Status: Acute (3) First trimester Status: Acute (4) Intractable vomiting Status: Acute Qualifiers: Qualified Codes: R11.2 - Nausea with vomiting, unspecified Consultation Date/Type/Reason Admit Date/Time Mar 28, 2019 at 19:22 Date of Consultation: Mar 31, 2019 Type of Consult DERMATOLOGIST AND DERMATOPATHOLOGIST consult Reason for Consultation Nausea and vomiting of , hyperemesis gravidarum Requesting Provider: RAYMOND BOWENS MD Date/Time of Note DATE: 03/31/19 TIME: 18:36 Hx of Present Illness 39-year-old G2, P1 with amenorrhea for 11 weeks and 5 days was admitted currently to medical service due to hyperemesis gravidarum. DERMATOLOGIST AND DERMATOPATHOLOGIST was consulted for further evaluation. Patient reports her LMP January 08, 2019. She denies any abdominal pain, vaginal bleeding, leaking of fluid, dysuria, fever chills or any other symptom except nausea and intractable vomiting. Patient reports had been Seen in [facility] for the same symptoms and had an ultrasound that was unremarkable. She denies any history of thyroid problem in the past. She reports her was concepcion. Has not started officially her care. Patient reports Zofran and Reglan helps her with the symptoms but tried in the past vitamin B6 and Unisom once a day that did not help with the symptoms. Status post 18 years ago. Current desirable and planned. Review of system negative for all other systems except what stated in HPI Past Medical History Patient denies any medical problems Home Meds No Active Prescriptions or Reported Meds Medications Current Medications IV Flush (NS 3 ml) 3 ml PER PROTOCOL IV ; Start 03/28/19 at 19:30 Acetaminophen (Tylenol Tab) 650 mg Q6H PRN PO .PAIN 1-3 OR TEMP Last administered on 03/29/19at 10:19; Admin Dose 650 MG; Start 03/28/19 at 19:30 Multivitamins 10 ml/Thiamine HCl 100 mg/Folic Acid 1 mg/Sodium Chloride 1,011.2 ml @ 125 mls/ hr DAILY@09 IVPB Last administered on 03/31/19at 08:33; Admin Dose 125 MLS/HR; Start 03/29/19 at 18:00 Pyridoxine HCl (Vitamin B6) 100 mg DAILY PO Last administered on 03/31/19at 08:32; Admin Dose 100 MG; Start 03/29/19 at 18:00 Ondansetron HCl (Zofran Inj) 4 mg Q4H PRN IV NAUSEA AND/OR VOMITING; Start 03/29/19 at 18:00 Dextrose/Sodium Chloride 1,000 ml @ 75 mls/hr [id number] IV Last administered on 03/31/19at 02:41; Admin Dose 75 MLS/HR; Start 03/29/19 at 18:00 Prochlorperazine (Compazine Inj) 5 mg Q8 IM Last administered on 03/31/19at 15:10; Admin Dose 5 MG; Start 03/30/19 at 14:00 Docusate Sodium (Colace) 200 mg BID PRN PO CONSTIPATION; Start 03/30/19 at 15:00 Bisacodyl (Dulcolax) 10 mg DAILY PRN PO CONSTIPATION; Start 03/30/19 at 15:00 Metoclopramide HCl (Reglan) 10 mg Q6 IV Last administered on 03/31/19at 17:52; Admin Dose 10 MG; Start 03/31/19 at 14:00 Pantoprazole (Protonix Tab) 40 mg DAILY@06 PO ; Start 04/01/19 at 06:00 Sucralfate (Carafate Susp) 1 gm QID PO Last administered on 03/31/19at 17:52; Admin Dose 1 GM; Start 03/31/19 at 17:00 Potassium Chloride (Potassium Chloride Pwd/Soln) 40 meq BID PO Last administered on 03/31/19at 17:56; Admin Dose 40 MEQ; Start 03/31/19 at 16:00 Famotidine (Pepcid) 20 mg BID PO ; Start 03/31/19 at 21:00 Allergies: Coded Allergies: No Known Allergy (Unverified , 03/28/19) Past Surgical History Denies any history of surgery in the past Family History Significant Family History: diabetes (Mother) Social History Alcohol Use: none Smoking Status: Former smoker Drug Use: none Exam/Review of Systems Exam Vitals Vital Signs Date Temp Pulse Resp B/P (MAP) Pulse Ox O2 O2 Flow FiO2 Time Delivery Rate 03/31/19 98.3 77 18 121/65 95 14:30 (83) 03/29/19 Room Air 13:57 Intake and Output 03/30/19 03/30/19 03/31/19 1515:00 23:00 07:00 IntakeIntake Total 400 ml 836.2 ml OutputOutput Total 100 ml BalanceBalance 400 ml 736.2 ml Constitutional: alert, oriented, well developed Psych: no complaints, nl mood/affect Head: normocephalic, atraumatic Eyes: nl conjunctiva, EOMI, nl lids ENMT: nl external ears & nose, nl lips & teeth, nl nasal mucosa & septum Neck: supple, non-tender Respiratory: clear to auscultation, normal air movement Cardiovascular: regular rate and rhythm, nl pulses Gastrointestinal: soft, nl liver, spleen, non-tender, other (Abdomen soft, nontender, no rebound tenderness, no guarding, no rigidity, negative Cleveland and McBurney sign.) Genitourinary - Female: other (Pelvic exam deferred) Extremities: normal pulses Neurological: CHECK VIEWER II-XII intact, nl mental status, nl speech Skin: nl turgor Results Result Diagram: 03/31/19 0500 03/31/19 0500 Results 24hrs Laboratory Tests Test 03/31/19 05:00 White Blood Count 11.6 H Red Blood Count 4.35 # Hemoglobin 12.4 Hematocrit 35.1 L Mean Corpuscular Volume 80.7 L Mean Corpuscular Hemoglobin 28.5 L Mean Corpuscular Hemoglobin Concent 35.3 Red Cell Distribution Width 13.0 Platelet Count 254 # Mean Platelet Volume 11.8 H Immature Granulocytes % 0.900 H Neutrophils % 73.4 Lymphocytes % 20.1 Monocytes % 5.1 Eosinophils % 0.2 Basophils % 0.3 Nucleated Red Blood Cells % 0.0 Immature Granulocytes # 0.110 H Neutrophils # 8.5 H Lymphocytes # 2.3 Monocytes # 0.6 Eosinophils # 0.0 Basophils # 0.0 Nucleated Red Blood Cells # 0.0 Sodium Level 135 Potassium Level 3.1 L Chloride Level 106 Carbon Dioxide Level 17 L Anion Gap 12 Blood Urea Nitrogen 5 L Creatinine 0.54 Est Glomerular Filtrat Rate mL/min > 60 Glucose Level 114 Calcium Level 8.3 L Magnesium Level 2.1 Total Bilirubin 0.5 Direct Bilirubin 0.00 Indirect Bilirubin 0.5 Aspartate Amino Transf (AST/SGOT) 272 H Alanine Aminotransferase (ALT/SGPT) 444 H Alkaline Phosphatase 51 Total Protein 7.3 # Albumin 3.7 Globulin 3.60 H Albumin/Globulin Ratio 1.02 Lipase 72 Medications Medication Current Medications IV Flush (NS 3 ml) 3 ml PER PROTOCOL IV ; Start 03/28/19 at 19:30 Acetaminophen (Tylenol Tab) 650 mg Q6H PRN PO .PAIN 1-3 OR TEMP Last administe red on 03/29/19at 10:19; Admin Dose 650 MG; Start 03/28/19 at 19:30 Multivitamins 10 ml/Thiamine HCl 100 mg/Folic Acid 1 mg/Sodium Chloride 1,011.2 ml @ 125 mls/ hr DAILY@09 IVPB Last administered on 03/31/19 08:33; Admin Dose 125 MLS/HR; Start 03/29/19 at 18:00 Pyridoxine HCl (Vitamin B6) 100 mg DAILY PO Last administered on 03/31/19 08:32; Admin Dose 100 MG; Start 03/29/19 at 18:00 Ondansetron HCl (Zofran Inj) 4 mg Q4H PRN IV NAUSEA AND/OR VOMITING; Start 03/29/19 at 18:00 Dextrose/Sodium Chloride 1,000 ml @ 75 mls/hr [id number] IV Last administered on 03/31/19 02:41; Admin Dose 75 MLS/HR; Start 03/29/19 at 18:00 Prochlorperazine (Compazine Inj) 5 mg Q8 IM Last administered on 03/31/19at 15:10; Admin Dose 5 MG; Start 03/30/19 at 14:00 Docusate Sodium (Colace) 200 mg BID PRN PO CONSTIPATION; Start 03/30/19 at 15:00 Bisacodyl (Dulcolax) 10 mg DAILY PRN PO CONSTIPATION; Start 03/30/19 at 15:00 Metoclopramide HCl (Reglan) 10 mg Q6 IV Last administered on 03/31/19at 17:52; Admin Dose 10 MG; Start 03/31/19 at 14:00 Pantoprazole (Protonix Tab) 40 mg DAILY@06 PO ; Start 04/01/19 at 06:00 Sucralfate (Carafate Susp) 1 gm QID PO Last administered on 03/31/19at 17:52; Admin Dose 1 GM; Start 03/31/19 at 17:00 Potassium Chloride (Potassium Chloride Pwd/Soln) 40 meq BID PO Last administered on 03/31/19at 17:56; Admin Dose 40 MEQ; Start 03/31/19 at 16:00 Famotidine (Pepcid) 20 mg BID PO ; Start 03/31/19 at 21:00 ORLANDO LALA MD Mar 31, 2019 18:42
[2019-03-31 20:15] VITALS: BP 153/75; PULSE 65; RESP 16
[2019-03-31] MEDS: FAMOTIDINE 20 MG TAB PO SCH (21:00)
[2019-04-01] MEDS: METOCLOPRAMIDE 10 MG INJ IV SCH ×4 (00:14→17:13)
[2019-04-01] MEDS: DEXTROSE 5%-0.45% NACL 1,000 ML IV SCH ×2 (02:01→11:46)
[2019-04-01] MEDS ORDERED: PANTOPRAZOLE (EC) 40 MG TAB PO SCH (03:32)
[2019-04-01 04:12] VITALS: BP 140/95; PULSE 103; RESP 20
[2019-04-01] MEDS: PROCHLORPERAZINE 10 MG INJ IM SCH ×2 (06:08→14:00)
[2019-04-01] MEDS ORDERED: POTASSIUM CHLORIDE 100 ML IVPB SCH (07:00)
[2019-04-01 08:12] VITALS: BP 120/78; PULSE 79; RESP 20
[2019-04-01] MEDS: FAMOTIDINE 20 MG TAB PO SCH ×2 (09:00→22:07)
[2019-04-01] MEDS: SUCRALFATE (100 MG/ML) 10ML CUP PO SCH ×4 (09:00→22:33)
[2019-04-01] MEDS: PYRIDOXINE 50 MG TAB PO SCH (09:00)
[2019-04-01] MEDS: MULTIVITAMINS 10 ML, THIAMINE 100 MG, FOLIC ACID 1 MG in SOD CHLORIDE 0.9% 1,000 ML IVPB SCH (09:13)
[2019-04-01] MEDS: POTASSIUM CHLORIDE (SR) 20 MEQ TAB PO SCH ×3 (09:41→22:33)
--- NOTE | 2019-04-01 13:10 | PN ---
Date/Time of Note Date/Time of Note DATE: 04/01/19 TIME: 13:08 OB Subjective Subjective Subjective Subjective: Patient declines any nausea or vomiting. Objective: Vital signs with evidence of elevated blood pressures General: No apparent distress Extremities: nontender to palpation A/P: 1. N/V-expectant. Continue current management. Patient advised on diet Juan Luis, Zofran, gaye, methylprednisolone. Currently hospital day #4. Patient receiving CV banana bag, Compazine. No evidence of hyperemesis. Prepregnancy weight 155 pounds. Current weight 168 pounds. 2. Intrauterine pregnancyultrasound reviewed with patient. Dopplers per shift. 3. Chorionic hemorrhageSPECT management. Patient informed of findings. She was advised to call should she have any vaginal bleeding. 4. CHTN-patient will require testing starting at 32 weeks gestation should she reached viability. Also require aspirin starting at 16 weeks gestation. She will require preeclamptic labs including a 24-hour urine protein. MFM consulted. 5. Hypokalemia-replace prn by primary service 6. Elevated transaminases-GI consulted discharge from OB and follow up with an OB within one week. If no OB, she may follow up with me in my clinic this week. Thank you for the consult. BRIAN MADRIGAL MD Apr 01, 2019 13:10
[2019-04-01 14:31] VITALS: BP 131/80; PULSE 84; RESP 18
--- NOTE | 2019-04-01 15:04 | PN ---
Date/Time of Note Date/Time of Note DATE: 04/01/19 TIME: 14:50 Assessment/Plan VTE Prophylaxis Risk score (from Ns)>0 risk: 1 SCD applied (from Ns): No SCD contraindicated: other (scds) Pharmacological prophylaxis: other (scds) Lines/Catheters IV [facility] Type (from [facility]): Peripheral IV Urinary Cath still in place: No Assessment/Plan Hospital Course Assessment: Hematemesis Nausea/vomiting likely due to hyperemesis gravidarum Gallbladder sludge on ultrasound Transaminitis -r/o 2/2 to Hyperemesis gravidarum vs auto-immune vs other -hepatitis serologies negative Plan: Reglan 10 mg IV every 6- change to PRN Protonix daily- d/c- pt on Pepcid Carafate 4 times daily Advance diet as tolerated Autoimmune panel Trend LFTs Patient seen in collaboration Dr. Oleary Subjective: Course reviewed with nursing staff Patient interviewed and examined All labs, imaging and other results reviewed The patient states sh eis feeling much better today, currently no c/o n/v or abd pain She is on a regular diet and tolerating well today. No over night events Exam PHYSICAL EXAMINATION: GENERAL: Well developed, well nourished, alert & oriented x 3, in no acute distress SKIN: No lesions, no stigmata chronic liver disease, no evidence of bleeding diathesis LYMPHATIC: No palpable lymphadenopathy. HEAD: Normocephalic, atraumatic, no tenderness. EYES: Pupils equal reactive to light and accommodation, full extraocular movements, sclera clear, non-icteric, no discharge. EARS/NOSE AND THROAT: Ears normal, nose normal, oropharynx normal, oral m embranes well hydrated without lesions. NECK: Supple, no masses, thyroid normal, JVP within normal limits, carotids normal without bruits. CHEST: Inspection within normal limits. CARDIOVASCULAR: Heart: Regular rate and rhythm, no murmurs, gallops or rubs. Peripheral pulses present within normal limits, no cyanosis, clubbing or edemas. No pulsatile abdominal mass RESPIRATORY: Lungs clear to auscultation and percussion, no wheezing, no rubs GASTROINTESTINAL AND LIVER: Abdomen: Soft, epigastric tenderness, abdomen, non-distended, no hernias, no masses, no organomegaly, no ascites, no guarding, no rebound tenderness, normoactive bowel sounds. Rectal: Deferred. GENITOURINARY: Female genitalia within normal limits. EXTREMITIES: No cyanosis, clubbing or edema. Result Diagram: 04/01/19 0503 04/01/19 0503 Results 24hrs Laboratory Tests Test 04/01/19 05:03 White Blood Count 7.8 # Red Blood Count 3.95 L Hemoglobin 11.3 L Hematocrit 31.6 L Mean Corpuscular Volume 80.0 L Mean Corpuscular Hemoglobin 28.6 L Mean Corpuscular Hemoglobin Concent 35.8 Red Cell Distribution Width 12.9 Platelet Count 190 # Mean Platelet Volume 11.6 H Immature Granulocytes % 0.600 H Neutrophils % 73.0 Lymphocytes % 20.1 Monocytes % 5.6 Eosinophils % 0.4 Basophils % 0.3 Nucleated Red Blood Cells % 0.0 Immature Granulocytes # 0.050 H Neutrophils # 5.7 Lymphocytes # 1.6 Monocytes # 0.4 Eosinophils # 0.0 Basophils # 0.0 Nucleated Red Blood Cells # 0.0 Sodium Level 135 Potassium Level 2.8 *L Chloride Level 105 Carbon Dioxide Level 20 L Anion Gap 10 Blood Urea Nitrogen 4 L Creatinine 0.43 L Est Glomerular Filtrat Rate mL/min > 60 Glucose Level 115 Calcium Level 7.8 L Total Bilirubin 0.4 Direct Bilirubin 0.00 Indirect Bilirubin 0.4 Aspartate Amino Transf (AST/SGOT) 205 H Alanine Aminotransferase (ALT/SGPT) 447 H Alkaline Phosphatase 42 Total Protein 6.2 # Albumin 3.1 L Globulin 3.10 Albumin/Globulin Ratio 1.00 Exam/Review of Systems Exam Vitals Vital Signs Date Temp Pulse Resp B/P (MAP) Pulse Ox O2 O2 Flow FiO2 Time Delivery Rate 04/01/19 98.8 84 18 131/80 97 14:31 (97) 03/29/19 Room Air 13:57 Intake and Output 03/31/19 03/31/19 04/01/19 1515:00 23:00 07:00 IntakeIntake Total 840 ml 1225 ml OutputOutput Total 50 ml BalanceBalance 840 ml -50 ml 1225 ml Results Results 24hrs Laboratory Tests Test 04/01/19 05:03 White Blood Count 7.8 # Red Blood Count 3.95 L Hemoglobin 11.3 L Hematocrit 31.6 L Mean Corpuscular Volume 80.0 L Mean Corpuscular Hemoglobin 28.6 L Mean Corpuscular Hemoglobin Concent 35.8 Red Cell Distribution Width 12.9 Platelet Count 190 # Mean Platelet Volume 11.6 H Immature Granulocytes % 0.600 H Neutrophils % 73.0 Lymphocytes % 20.1 Monocytes % 5.6 Eosinophils % 0.4 Basophils % 0.3 Nucleated Red Blood Cells % 0.0 Immature Granulocytes # 0.050 H Neutrophils # 5.7 Lymphocytes # 1.6 Monocytes # 0.4 Eosinophils # 0.0 Basophils # 0.0 Nucleated Red Blood Cells # 0.0 Sodium Level 135 Potassium Level 2.8 *L Chloride Level 105 Carbon Dioxide Level 20 L Anion Gap 10 Blood Urea Nitrogen 4 L Creatinine 0.43 L Est Glomerular Filtrat Rate mL/min > 60 Glucose Level 115 Calcium Level 7.8 L Total Bilirubin 0.4 Direct Bilirubin 0.00 Indirect Bilirubin 0.4 Aspartate Amino Transf (AST/SGOT) 205 H Alanine Aminotransferase (ALT/SGPT) 447 H Alkaline Phosphatase 42 Total Protein 6.2 # Albumin 3.1 L Globulin 3.10 Albumin/Globulin Ratio 1.00 Medications Medication Current Medications IV Flush (NS 3 ml) 3 ml PER PROTOCOL IV ; Start 03/28/19 at 19:30 Acetaminophen (Tylenol Tab) 650 mg Q6H PRN PO .PAIN 1-3 OR TEMP Last administered on 03/29/19at 10:19; Admin Dose 650 MG; Start 03/28/19 at 19:30 Multivitamins 10 ml/Thiamine HCl 100 mg/Folic Acid 1 mg/Sodium Chloride 1,011.2 ml @ 125 mls/ hr DAILY@09 IVPB Last administered on 04/01/19at 09:13; Admin Dose 125 MLS/HR; Start 03/29/19 at 18:00 Pyridoxine HCl (Vitamin B6) 100 mg DAILY PO Last administered on 03/31/19at 08:32; Admin Dose 100 MG; Start 03/29/19 at 18:00 Ondansetron HCl (Zofran Inj) 4 mg Q4H PRN IV NAUSEA AND/OR VOMITING; Start 03/29/19 at 18:00 Dextrose/Sodium Chloride 1,000 ml @ 75 mls/hr [id number] IV Last administered on 04/01/19at 02:01; Admin Dose 75 MLS/HR; Start 03/29/19 at 18:00 Prochlorperazine (Compazine Inj) 5 mg Q8 IM Last administered on 04/01/19at 06:08; Admin Dose 5 MG; Start 03/30/19 at 14:00 Docusate Sodium (Colace) 200 mg BID PRN PO CONSTIPATION; Start 03/30/19 at 15:00 Bisacodyl (Dulcolax) 10 mg DAILY PRN PO CONSTIPATION; Start 03/30/19 at 15:00 Metoclopramide HCl (Reglan) 10 mg Q6 IV Last administered on 04/01/19at 06:07; Admin Dose 10 MG; Start 03/31/19 at 14:00 Pantoprazole (Protonix Tab) 40 mg DAILY@06 PO Last administered on 04/01/19at 03:44; Admin Dose 40 MG; Start 04/01/19 at 03:32 Sucralfate (Carafate Susp) 1 gm QID PO Last administered on 03/31/19at 17:52; Admin Dose 1 GM; Start 03/31/19 at 17:00 Famotidine (Pepcid) 20 mg BID PO ; Start 03/31/19 at 21:00 Potassium Chloride (Klor-Con 20) 40 meq TID PO Last administered on 04/01/19at 12:17; Admin Dose 40 MEQ; Start 04/01/19 at 09:00 SHIRAZ TORRES Apr 01, 2019 15:03
--- NOTE | 2019-04-01 18:49 | PN ---
Date/Time of Note Date/Time of Note DATE: 04/01/19 TIME: 18:46 Assessment/Plan VTE Prophylaxis Risk score (from Ns)>0 risk: 1 SCD applied (from Ns): No SCD contraindicated: low risk/ambulating Pharmacological prophylaxis: NA/contraindicated Pharm contraindication: low risk/ambulating Lines/Catheters IV [facility]ter Type (from [facility]): Peripheral IV Urinary Cath still in place: No Assessment/Plan Hospital Course Hospitalist coverage Assessment and plan 1. Vomiting, consider hyperemesis gravidarum syndrome vs gerd. Stable consulted OB. -Plan is Zofran, Unison 25mg hs w B6 100 mg; and Unison 1/2 tab q am prn; and banana bag. pharmacy refused to agree w dispensing otc therapy 2. Mild abnormal LFTs. Doubt HEELP syndrome. Ward? hepatitis panel- P. appreciate gi assistance. 3. Past tobacco 4. Anemia 5. Cholelithiasis/gallbladder sludge 6. Hypertension/ CHTN; risk noted. bb started. 7. Small subchorionic hemorrhage. Notify OB if there is PV bleeding. 8. Moderate hypokalemia, diet intake. May need calorie count. TPN may be a consideration. S: 03/29 nausea vomiting, not tolerating diet. Had a little little bit of cheesecake this morning. No fever mild flatus no dyspnea. First . 03/30: Nausea, was n.p.o. for ultrasound. Refused Zofran. Sp counseling. 03/31: less n/v. not eating much. no bm. 04/01: Less nausea vomiting. PO intake still poor. Updated patient and significant other. O: Vss PE No pallor icterus Reg Clear Benign/ gravid. No r/r/g; no flank ecchymosis No edema Result Diagram: 04/01/19 0503 04/01/19 0503 Results 24hrs Laboratory Tests Test 04/01/19 05:03 White Blood Count 7.8 # Red Blood Count 3.95 L Hemoglobin 11.3 L Hematocrit 31.6 L Mean Corpuscular Volume 80.0 L Mean Corpuscular Hemoglobin 28.6 L Mean Corpuscular Hemoglobin Concent 35.8 Red Cell Distribution Width 12.9 Platelet Count 190 # Mean Platelet Volume 11.6 H Immature Granulocytes % 0.600 H Neutrophils % 73.0 Lymphocytes % 20.1 Monocytes % 5.6 Eosinophils % 0.4 Basophils % 0.3 Nucleated Red Blood Cells % 0.0 Immature Granulocytes # 0.050 H Neutrophils # 5.7 Lymphocytes # 1.6 Monocytes # 0.4 Eosinophils # 0.0 Basophils # 0.0 Nucleated Red Blood Cells # 0.0 Sodium Level 135 Potassium Level 2.8 *L Chloride Level 105 Carbon Dioxide Level 20 L Anion Gap 10 Blood Urea Nitrogen 4 L Creatinine 0.43 L Est Glomerular Filtrat Rate mL/min > 60 Glucose Level 115 Calcium Level 7.8 L Total Bilirubin 0.4 Direct Bilirubin 0.00 Indirect Bilirubin 0.4 Aspartate Amino Transf (AST/SGOT) 205 H Alanine Aminotransferase (ALT/SGPT) 447 H Alkaline Phosphatase 42 Total Protein 6.2 # Albumin 3.1 L Globulin 3.10 Albumin/Globulin Ratio 1.00 Exam/Review of Systems Exam Vitals Vital Signs Date Temp Pulse Resp B/P (MAP) Pulse Ox O2 O2 Flow FiO2 Time Delivery Rate 04/01/19 98.8 84 18 131/80 97 14:31 (97) 03/29/19 Room Air 13:57 Intake and Output 03/31/19 03/31/19 04/01/19 1515:00 23:00 07:00 IntakeIntake Total 840 ml 1225 ml OutputOutput Total 50 ml BalanceBalance 840 ml -50 ml 1225 ml Results Results 24hrs Laboratory Tests Test 04/01/19 05:03 White Blood Count 7.8 # Red Blood Count 3.95 L Hemoglobin 11.3 L Hematocrit 31.6 L Mean Corpuscular Volume 80.0 L Mean Corpuscular Hemoglobin 28.6 L Mean Corpuscular Hemoglobin Concent 35.8 Red Cell Distribution Width 12.9 Platelet Count 190 # Mean Platelet Volume 11.6 H Immature Granulocytes % 0.600 H Neutrophils % 73.0 Lymphocytes % 20.1 Monocytes % 5.6 Eosinophils % 0.4 Basophils % 0.3 Nucleated Red Blood Cells % 0.0 Immature Granulocytes # 0.050 H Neutrophils # 5.7 Lymphocytes # 1.6 Monocytes # 0.4 Eosinophils # 0.0 Basophils # 0.0 Nucleated Red Blood Cells # 0.0 Sodium Level 135 Potassium Level 2.8 *L Chloride Level 105 Carbon Dioxide Level 20 L Anion Gap 10 Blood Urea Nitrogen 4 L Creatinine 0.43 L Est Glomerular Filtrat Rate mL/min > 60 Glucose Level 115 Calcium Level 7.8 L Total Bilirubin 0.4 Direct Bilirubin 0.00 Indirect Bilirubin 0.4 Aspartate Amino Transf (AST/SGOT) 205 H Alanine Aminotransferase (ALT/SGPT) 447 H Alkaline Phosphatase 42 Total Protein 6.2 # Albumin 3.1 L Globulin 3.10 Albumin/Globulin Ratio 1.00 Medications Medication Current Medications IV Flush (NS 3 ml) 3 ml PER PROTOCOL IV ; Start 03/28/19 at 19:30 Acetaminophen (Tylenol Tab) 650 mg Q6H PRN PO .PAIN 1-3 OR TEMP Last administered on 03/29/19at 10:19; Admin Dose 650 MG; Start 03/28/19 at 19:30 Pyridoxine HCl (Vitamin B6) 100 mg DAILY PO Last administered on 03/31/19at 08:32; Admin Dose 100 MG; Start 03/29/19 at 18:00 Ondansetron HCl (Zofran Inj) 4 mg Q4H PRN IV NAUSEA AND/OR VOMITING; Start 03/29/19 at 18:00 Prochlorperazine (Compazine Inj) 5 mg Q8 IM Last administered on 04/01/19at 06:08; Admin Dose 5 MG; Start 03/30/19 at 14:00 Docusate Sodium (Colace) 200 mg BID PRN PO CONSTIPATION; Start 03/30/19 at 15:00 Bisacodyl (Dulcolax) 10 mg DAILY PRN PO CONSTIPATION; Start 03/30/19 at 15:00 Metoclopramide HCl (Reglan) 10 mg Q6 IV Last administered on 04/01/19at 06:07; Admin Dose 10 MG; Start 03/31/19 at 14:00 Sucralfate (Carafate Susp) 1 gm QID PO Last administered on 03/31/19at 17:52; Admin Dose 1 GM; Start 03/31/19 at 17:00 Famotidine (Pepcid) 20 mg BID PO ; Start 03/31/19 at 21:00 Potassium Chloride (Klor-Con 20) 40 meq TID PO Last administered on 04/01/19at 12:17; Admin Dose 40 MEQ; Start 04/01/19 at 09:00 Potassium Chloride/Dextrose/ Sod Cl 1,000 ml @ 50 mls/hr Q20H IV ; Start 04/01/19 at 19:00; Status UNV ZHENG KAUR MD Apr 01, 2019 18:49
[2019-04-01 20:32] VITALS: BP 132/85; PULSE 85; RESP 16
[2019-04-01] MEDS: LABETALOL 100 MG TAB PO SCH (21:00)
[2019-04-01] MEDS: D5W-0.45 NACL + KCL 40 MEQ 1,000 ML IV SCH (22:28)
[2019-04-02] MEDS: METOCLOPRAMIDE 10 MG INJ IV SCH ×2 (00:39→05:53)
[2019-04-02 07:50] VITALS: BP 106/59; PULSE 68; RESP 20
[2019-04-02] MEDS: LABETALOL 100 MG TAB PO SCH ×3 (09:00→22:39)
[2019-04-02] MEDS: SUCRALFATE (100 MG/ML) 10ML CUP PO SCH ×4 (11:14→21:20)
[2019-04-02] MEDS: POTASSIUM CHLORIDE (SR) 20 MEQ TAB PO SCH ×3 (11:14→22:37)
[2019-04-02] MEDS: PYRIDOXINE 50 MG TAB PO SCH (11:16)
[2019-04-02] MEDS: FAMOTIDINE 20 MG TAB PO SCH ×2 (11:16→21:20)
[2019-04-02] MEDS ORDERED: METOCLOPRAMIDE 10 MG INJ IV PRN (12:00)
--- NOTE | 2019-04-02 12:35 | PN ---
Date/Time of Note Date/Time of Note DATE: 04/02/19 TIME: 12:33 Assessment/Plan VTE Prophylaxis Risk score (from Ns)>0 risk: 1 SCD applied (from Ns): No SCD contraindicated: other (scds) Pharmacological prophylaxis: other (scds) Lines/Catheters IV [facility] Type (from [facility]): Peripheral IV Urinary Cath still in place: No Assessment/Plan Hospital Course Assessment: Hematemesis Nausea/vomiting likely due to hyperemesis gravidarum Gallbladder sludge on ultrasound Transaminitis -r/o 2/2 to Hyperemesis gravidarum vs auto-immune vs other -hepatitis serologies negative Plan: Continue GI regimen ALT continues to trend up, was normal on admission- trend LFTs- will also order ammonia- await auto-immune labs Encourage PO intake as tolerated Patient seen in collaboration Dr. Oleary Subjective: Course reviewed with nursing staff Patient interviewed and examined All labs, imaging and other results reviewed Pt feels well, states she is ready to go home, no further c/o n/v. BP is now controlled Exam PHYSICAL EXAMINATION: GENERAL: Well developed, well nourished, alert & oriented x 3, in no acute distress SKIN: No lesions, no stigmata chronic liver disease, no evidence of bleeding diathesis LYMPHATIC: No palpable lymphadenopathy. HEAD: Normocephalic, atraumatic, no tenderness. EYES: Pupils equal reactive to light and accommodation, full extraocular movements, sclera clear, non-icteric, no discharge. EARS/NOSE AND THROAT: Ears normal, nose normal, oropharynx normal, oral membranes well hydrated without lesions. NECK: Supple, no masses, thyroid normal, JVP within normal limits, carotids normal without bruits. CHEST: Inspection within normal limits. CARDIOVASCULAR: Heart: Regular rate and rhythm, no murmurs, gallops or rubs. Pe ripheral pulses present within normal limits, no cyanosis, clubbing or edemas. No pulsatile abdominal mass RESPIRATORY: Lungs clear to auscultation and percussion, no wheezing, no rubs GASTROINTESTINAL AND LIVER: Abdomen: Soft, epigastric tenderness, abdomen, non-distended, no hernias, no masses, no organomegaly, no ascites, no guarding, no rebound tenderness, normoactive bowel sounds. Rectal: Deferred. GENITOURINARY: Female genitalia within normal limits. EXTREMITIES: No cyanosis, clubbing or edema. Result Diagram: 04/02/19 0527 04/02/1927 Results 24hrs Laboratory Tests Test 04/01/19 19:05 04/02/19 05:27 Potassium Level 3.9 4.0 White Blood Count 9.7 # Red Blood Count 4.35 Hemoglobin 12.5 Hematocrit 35.9 L Mean Corpuscular Volume 82.5 Mean Corpuscular Hemoglobin 28.7 L Mean Corpuscular Hemoglobin Concent 34.8 Red Cell Distribution Width 13.2 Platelet Count 230 # Mean Platelet Volume 11.5 H Immature Granulocytes % 0.700 H Neutrophils % 68.0 Lymphocytes % 24.5 Monocytes % 5.7 Eosinophils % 0.8 Basophils % 0.3 Nucleated Red Blood Cells % 0.0 Immature Granulocytes # 0.070 H Neutrophils # 6.6 Lymphocytes # 2.4 Monocytes # 0.6 Eosinophils # 0.1 Basophils # 0.0 Nucleated Red Blood Cells # 0.0 Sodium Level 137 Chloride Level 106 Carbon Dioxide Level 19 L Anion Gap 12 Blood Urea Nitrogen 2 L Creatinine 0.46 Est Glomerular Filtrat Rate mL/min > 60 Glucose Level 116 Calcium Level 8.8 Total Bilirubin 0.5 Direct Bilirubin 0.00 Indirect Bilirubin 0.5 Aspartate Amino Transf (AST/SGOT) 171 H Alanine Aminotransferase (ALT/SGPT) 504 H Alkaline Phosphatase 57 Total Protein 7.4 # Albumin 3.7 Globulin 3.70 H Albumin/Globulin Ratio 1.00 Exam/Review of Systems Exam Vitals Vital Signs Date Temp Pulse Resp B/P (MAP) Pulse Ox O2 O2 Flow FiO2 Time Delivery Rate 04/02/19 98.8 68 20 106/59 98 07:50 (75) 03/29/19 Room Air 13:57 Intake and Output 04/01/19 04/01/19 04/02/19 1515:00 23:00 07:00 IntakeIntake Total 480 ml 1491.2 ml 425 ml BalanceBalance 480 ml 1491.2 ml 425 ml Results Results 24hrs Laboratory Tests Test 04/01/19 19:05 04/02/19 05:27 Potassium Level 3.9 4.0 White Blood Count 9.7 # Red Blood Count 4.35 Hemoglobin 12.5 Hematocrit 35.9 L Mean Corpuscular Volume 82.5 Mean Corpuscular Hemoglobin 28.7 L Mean Corpuscular Hemoglobin Concent 34.8 Red Cell Distribution Width 13.2 Platelet Count 230 # Mean Platelet Volume 11.5 H Immature Granulocytes % 0.700 H Neutrophils % 68.0 Lymphocytes % 24.5 Monocytes % 5.7 Eosinophils % 0.8 Basophils % 0.3 Nucleated Red Blood Cells % 0.0 Immature Granulocytes # 0.070 H Neutrophils # 6.6 Lymphocytes # 2.4 Monocytes # 0.6 Eosinophils # 0.1 Basophils # 0.0 Nucleated Red Blood Cells # 0.0 Sodium Level 137 Chloride Level 106 Carbon Dioxide Level 19 L Anion Gap 12 Blood Urea Nitrogen 2 L Creatinine 0.46 Est Glomerular Filtrat Rate mL/min > 60 Glucose Level 116 Calcium Level 8.8 Total Bilirubin 0.5 Direct Bilirubin 0.00 Indirect Bilirubin 0.5 Aspartate Amino Transf (AST/SGOT) 171 H Alanine Aminotransferase (ALT/SGPT) 504 H Alkaline Phosphatase 57 Total Protein 7.4 # Albumin 3.7 Globulin 3.70 H Albumin/Globulin Ratio 1.00 Medications Medication Current Medications IV Flush (NS 3 ml) 3 ml PER PROTOCOL IV ; Start 03/28/19 at 19:30 Acetaminophen (Tylenol Tab) 650 mg Q6H PRN PO .PAIN 1-3 OR TEMP Last administered on 03/29/19at 10:19; Admin Dose 650 MG; Start 03/28/19 at 19:30 Pyridoxine HCl (Vitamin B6) 100 mg DAILY PO Last administered on 04/02/19at 11:16; Admin Dose 100 MG; Start 03/29/19 at 18:00 Ondansetron HCl (Zofran Inj) 4 mg Q4H PRN IV NAUSEA AND/OR VOMITING; Start 03/29/19 at 18:00 Docusate Sodium (Colace) 200 mg BID PRN PO CONSTIPATION; Start 03/30/19 at 15:00 Bisacodyl (Dulcolax) 10 mg DAILY PRN PO CONSTIPATION; Start 03/30/19 at 15:00 Sucralfate (Carafate Susp) 1 gm QID PO Last administered on 04/02/19at 11:14; Admin Dose 1 GM; Start 03/31/19 at 17:00 Famotidine (Pepcid) 20 mg BID PO Last administered on 04/02/19at 11:16; Admin Dose 20 MG; Start 03/31/19 at 21:00 Potassium Chloride (Klor-Con 20) 40 meq TID PO Last administered on 04/02/19at 11:14; Admin Dose 40 MEQ; Start 04/01/19 at 09:00 Potassium Chloride/Dextrose/ Sod Cl 1,000 ml @ 50 mls/hr Q20H IV Last administered on 04/01/19at 22:28; Admin Dose 50 MLS/HR; Start 04/01/19 at 20:30 Labetalol HCl (Normodyne) 100 mg BID PO ; Start 04/01/19 at 21:00 Metoclopramide HCl (Reglan) 10 mg Q6H PRN IV n/v; Start 04/02/19 at 12:00 SHIRAZ TORRES Apr 02, 2019 12:35
[2019-04-02 13:51] VITALS: BP 161/81; PULSE 73; RESP 20
[2019-04-02] MEDS: D5W-0.45 NACL + KCL 40 MEQ 1,000 ML IV SCH (16:30)
--- NOTE | 2019-04-02 17:07 | PN ---
Date/Time of Note Date/Time of Note DATE: 04/02/19 TIME: 17:04 Assessment/Plan VTE Prophylaxis Risk score (from Ns)>0 risk: 1 SCD applied (from Ns): No SCD contraindicated: low risk/ambulating Pharmacological prophylaxis: NA/contraindicated Pharm contraindication: low risk/ambulating Lines/Catheters [facility]from [facility] Peripheral IV Urinary Cath still in place: No Assessment/Plan Hospital Course Hospitalist coverage Assessment and plan 1. Vomiting, consider hyperemesis gravidarum syndrome vs gerd. Stable consulted OB: -Recomm: Zofran, Unison 25mg hs w B6 100 mg; and Unison 1/2 tab q am prn; and banana bag. pharmacy refused to assist in dispensing otc therapy 2. Mild abn LFTs. Doubt HEELP syndrome. Ward? hepatitis panel- P. appreciate gi assistance. 3. Past tobacco 4. Anemia 5. Cholelithiasis/gallbladder sludge 6. Hypertension/ CHTN; risk noted. bb started. 7. Small subchorionic hemorrhage. Notify OB if there is PV bleeding. 8. Hypokalemia, poor diet intake. Started calorie count. TPN may be a consideration. S: 03/29 nausea vomiting, not tolerating diet. Had a little little bit of cheesecake this morning. No fever mild flatus no dyspnea. First . 03/30: Nausea, was n.p.o. for ultrasound. Refused Zofran. Sp counseling. 03/31: less n/v. not eating much. no bm. 04/01: Less nausea vomiting. PO intake still poor. Updated patient and significant other. 04/02: Only vomited once in the last 12 to 24 hours. No fever. Diet intake: only shakes & liquids this morning. O: Vss PE No pallor icterus Reg Clear Benign/ gravid. No r/r/g; no flank ecchymosis No edema Result Diagram: 04/02/1952604/02/19526 Results 24hrs Laboratory Tests Test 04/01/19 19:05 04/02/19 05:27 04/02/19 13:24 Potassium Level 3.9 4.0 White Blood Count 9.7 # Red Blood Count 4.35 Hemoglobin 12.5 Hematocrit 35.9 L Mean Corpuscular Volume 82.5 Mean Corpuscular Hemoglobin 28.7 L Mean Corpuscular Hemoglobin Concent 34.8 Red Cell Distribution Width 13.2 Platelet Count 230 # Mean Platelet Volume 11.5 H Immature Granulocytes % 0.700 H Neutrophils % 68.0 Lymphocytes % 24.5 Monocytes % 5.7 Eosinophils % 0.8 Basophils % 0.3 Nucleated Red Blood Cells % 0.0 Immature Granulocytes # 0.070 H Neutrophils # 6.6 Lymphocytes # 2.4 Monocytes # 0.6 Eosinophils # 0.1 Basophils # 0.0 Nucleated Red Blood Cells # 0.0 Sodium Level 137 Chloride Level 106 Carbon Dioxide Level 19 L Anion Gap 12 Blood Urea Nitrogen 2 L Creatinine 0.46 Est Glomerular Filtrat Rate mL/min > 60 Glucose Level 116 Calcium Level 8.8 Total Bilirubin 0.5 Direct Bilirubin 0.00 Indirect Bilirubin 0.5 Aspartate Amino Transf (AST/SGOT) 171 H Alanine Aminotransferase (ALT/SGPT) 504 H Alkaline Phosphatase 57 Total Protein 7.4 # Albumin 3.7 Globulin 3.70 H Albumin/Globulin Ratio 1.00 Prothrombin Time 12.3 Prothrombin Time Ratio 1.0 INR International Normalized Ratio 0.90 Ammonia < 9 L Exam/Review of Systems Exam Vitals Vital Signs Date Temp Pulse Resp B/P (MAP) Pulse Ox O2 O2 Flow FiO2 Time Delivery Rate 04/02/19 97.3 73 20 161/81 100 13:51 (107) 03/29/19 Room Air 13:57 Intake and Output 04/01/19 04/01/19 04/02/19 1515:00 23:00 07:00 IntakeIntake Total 480 ml 1491.2 ml 425 ml BalanceBalance 480 ml 1491.2 ml 425 ml Results Results 24hrs Laboratory Tests Test 04/01/19 19:05 04/02/19 05:27 04/02/19 13:24 Potassium Level 3.9 4.0 White Blood Count 9.7 # Red Blood Count 4.35 Hemoglobin 12.5 Hematocrit 35.9 L Mean Corpuscular Volume 82.5 Mean Corpuscular Hemoglobin 28.7 L Mean Corpuscular Hemoglobin Concent 34.8 Red Cell Distribution Width 13.2 Platelet Count 230 # Mean Platelet Volume 11.5 H Immature Granulocytes % 0.700 H Neutrophils % 68.0 Lymphocytes % 24.5 Monocytes % 5.7 Eosinophils % 0.8 Basophils % 0.3 Nucleated Red Blood Cells % 0.0 Immature Granulocytes # 0.070 H Neutrophils # 6.6 Lymphocytes # 2.4 Monocytes # 0.6 Eosinophils # 0.1 Basophils # 0.0 Nucleated Red Blood Cells # 0.0 Sodium Level 137 Chloride Level 106 Carbon Dioxide Level 19 L Anion Gap 12 Blood Urea Nitrogen 2 L Creatinine 0.46 Est Glomerular Filtrat Rate mL/min > 60 Glucose Level 116 Calcium Level 8.8 Total Bilirubin 0.5 Direct Bilirubin 0.00 Indirect Bilirubin 0.5 Aspartate Amino Transf (AST/SGOT) 171 H Alanine Aminotransferase (ALT/SGPT) 504 H Alkaline Phosphatase 57 Total Protein 7.4 # Albumin 3.7 Globulin 3.70 H Albumin/Globulin Ratio 1.00 Prothrombin Time 12.3 Prothrombin Time Ratio 1.0 INR International Normalized Ratio 0.90 Ammonia < 9 L Medications Medication Current Medications IV Flush (NS 3 ml) 3 ml PER PROTOCOL IV Last administered on 04/02/19 13:51; Admin Dose 3 ML; Start 03/28/19 at 19:30 Acetaminophen (Tylenol Tab) 650 mg Q6H PRN PO .PAIN 1-3 OR TEMP Last administered on 03/29/19 10:19; Admin Dose 650 MG; Start 03/28/19 at 19:30 Pyridoxine HCl (Vitamin B6) 100 mg DAILY PO Last administered on 04/02/19 11:16; Admin Dose 100 MG; Start 03/29/19 at 18:00 Ondansetron HCl (Zofran Inj) 4 mg Q4H PRN IV NAUSEA AND/OR VOMITING; Start 03/29/19 at 18:00 Docusate Sodium (Colace) 200 mg BID PRN PO CONSTIPATION; Start 03/30/19 at 15:00 Bisacodyl (Dulcolax) 10 mg DAILY PRN PO CONSTIPATION; Start 03/30/19 at 15:00 Sucralfate (Carafate Susp) 1 gm QID PO Last administered on 04/02/19 13:50; Admin Dose 1 GM; Start 03/31/19 at 17:00 Famotidine (Pepcid) 20 mg BID PO Last administered on 04/02/19 11:16; Admin Dose 20 MG; Start 03/31/19 at 21:00 Potassium Chloride (Klor-Con 20) 40 meq TID PO Last administered on 7/7/19at 13:50; Admin Dose 40 MEQ; Start 04/01/19 at 09:00 Potassium Chloride/Dextrose/ Sod Cl 1,000 ml @ 50 mls/hr Q20H IV Last administered on 04/01/19at 22:28; Admin Dose 50 MLS/HR; Start 04/01/19 at 20:30 Labetalol HCl (Normodyne) 100 mg BID PO Last administered on 04/02/19at 14:14; Admin Dose 100 MG; Start 04/01/19 at 21:00 Metoclopramide HCl (Reglan) 10 mg Q6H PRN IV n/v; Start 04/02/19 at 12:00 ZHENG KAUR MD Apr 02, 2019 17:06
[2019-04-02] MEDS ORDERED: METOCLOPRAMIDE 5 MG TAB PO PRN (17:30)
[2019-04-02 20:05] VITALS: BP 121/76; PULSE 79; RESP 18
[2019-04-03 01:14] VITALS: BP 135/82; PULSE 82; RESP 20
[2019-04-03] MEDS: SUCRALFATE (100 MG/ML) 10ML CUP PO SCH ×2 (09:47→15:20)
[2019-04-03] MEDS: PYRIDOXINE 50 MG TAB PO SCH (09:48)
[2019-04-03] MEDS: POTASSIUM CHLORIDE (SR) 20 MEQ TAB PO SCH ×2 (09:48→15:20)
[2019-04-03] MEDS: FAMOTIDINE 20 MG TAB PO SCH (09:48)
[2019-04-03] MEDS: LABETALOL 100 MG TAB PO SCH (09:57)
[2019-04-03] MEDS ORDERED: METO5TAB2 PO (16:01)
--- NOTE | 2019-04-03 16:20 | DS ---
Date/Time of Note Date/Time of Note DATE: 04/03/19 TIME: 16:02 Discharge Summary Admission/Discharge Info Admit Date/Time Mar 28, 2019 at 19:22 Discharge Date/Time Discharge Diagnosis 1. Hyperemesis gravidarum syndrome, improving, on reglan prn, follow up with O B: 2. Transaminitis, improving, unclear etiology, follow up with PCP to repeat LFTs 3. Cholelithiasis/gallbladder sludge, asymptomatic 4. Dehydration, improved 5. Small subchorionic hemorrhage, follow up with OB 8. Hypokalemia, resolved Patient Condition: Stable Hospital Course Patient is a 39-year-old female who is 11 weeks who presents the ER complaining of nausea and vomiting x1 months. She was initially seen at [facility] where ultrasound was done which showed 11 weeks gestation. She denied abdominal pain, fever/chills, shortness of breath. Patient has hyperemesis gravidarum that she is treated with IVF and symptomatic management. Nausea and vomiting are significantly improved. Hypokalemia is resolved. Patient will be discharged on reglan PRN and instructed to follow up with her OB outpatient. Abdominal US revealed a small subchorionic hemorrhage, OB is aware of it and recommends outpatient follow up. Patient has elevated troponin that was mildly elevated with AST/ALT/ALK phos 52/43/35 on admission, up to 171/504/57 on 04/02/2019 and then down to 127/414/49 today. Hepatitis A/B/C are negative(HbsAB+), ALFRED negative. Abdominal US with gallstones but no evidence of cholecystitis, unremarkable CBD. Etiology of acute transaminitis is unclear, unlikely from gallstones. platelet counts are normal. She is instructed to repeat LFTs per her PCP and OB next week. Home Meds Active Scripts Metoclopramide Hcl* (Metoclopramide Hcl*) 5 Mg Tablet, 5 MG PO Q6H PRN for NAUSEA AND/OR VOMITING for 10 Days, TAB Prov:JAELYN MANCERA MD 04/03/19 Primary Care Provider PCP and OB in one week, repeat LFTs Pending Labs Laboratory Tests Test 04/03/19 05:10 Sodium Level 135 mmol/L (135-144) Potassium Level 4.6 mmol/L (3.5-5.1) Chloride Level 106 mmol/L (97-110) Carbon Dioxide Level 20 mmol/L (21-31) Anion Gap 9 (5-13) Blood Urea Nitrogen 3 mg/dl (7-20) Creatinine 0.45 mg/dl (0.44-1.00) Est Glomerular Filtrat Rate mL/min > 60 mL/min (>60) Glucose Level 107 mg/dl (70-220) Calcium Level 9.4 mg/dl (8.4-10.2) Total Bilirubin 0.5 mg/dl (0.2-1.3) Direct Bilirubin 0.00 mg/dl (0.00-0.20) Indirect Bilirubin 0.5 mg/dl (0-1.1) Aspartate Amino Transf (AST/SGOT) 127 IU/L (15-46) Alanine Aminotransferase (ALT/SGPT) 414 IU/L (13-69) Alkaline Phosphatase 49 IU/L (42-121) Total Protein 6.9 g/dl (6.1-8.1) Albumin 3.6 g/dl (3.3-4.9) Globulin 3.30 g/dl (1.3-3.2) Albumin/Globulin Ratio 1.09 JAELYN MANCERA MD Apr 03, 2019 16:13
--- NOTE | 2019-04-03 17:09 | PN ---
Date/Time of Note Date/Time of Note DATE: 04/03/19 TIME: 17:07 Assessment/Plan VTE Prophylaxis Risk score (from Ns)>0 risk: 1 SCD applied (from Ns): No SCD contraindicated: low risk/ambulating Pharmacological prophylaxis: NA/contraindicated Pharm contraindication: low risk/ambulating Lines/Catheters [facility] Peripheral IV Urinary Cath still in place: No Assessment/Plan Hospital Course Assessment: Hematemesis Nausea/vomiting likely due to hyperemesis gravidarum Gallbladder sludge on ultrasound Transaminitis - trending own -r/o 2/2 to Hyperemesis gravidarum vs auto-immune vs other -hepatitis serologies negative Plan: LFTs down today-ok to d/c from GI point of view Pt to f/u with her PCP within 1 week to recheck LFTs Patient seen in collaboration Dr. Oleary Subjective: Course reviewed with nursing staff Patient interviewed and examined All labs, imaging and other results reviewed No over night events, pt tolerating diet No c/o nausea/vomiting. Exam PHYSICAL EXAMINATION: GENERAL: Well developed, well nourished, alert & oriented x 3, in no acute distress SKIN: No lesions, no stigmata chronic liver disease, no evidence of bleeding diathesis LYMPHATIC: No palpable lymphadenopathy. HEAD: Normocephalic, atraumatic, no tenderness. EYES: Pupils equal reactive to light and accommodation, full extraocular movements, sclera clear, non-icteric, no discharge. EARS/NOSE AND THROAT: Ears normal, nose normal, oropharynx normal, oral membranes well hydrated without lesions. NECK: Supple, no masses, thyroid normal, JVP within normal limits, carotids normal without bruits. CHEST: Inspection within normal limits. CARDIOVASCULAR: Heart: Regular rate and rhythm, no murmurs, gallops or rubs. Peripheral pulses present within normal limits, no cyanosis, clubbing or edemas. No pulsatile abdominal mass RESPIRATORY: Lungs clear to auscultation and percussion, no wheezing, no rubs GASTROINTESTINAL AND LIVER: Abdomen: Soft, epigastric tenderness, abdomen, non-distended, no hernias, no masses, no organomegaly, no ascites, no guarding, no rebound tenderness, normoactive bowel sounds. Rectal: Deferred. GENITOURINARY: Female genitalia within normal limits. EXTREMITIES: No cyanosis, clubbing or edema. Result Diagram: 04/02/19 0527 04/03/19 0510 Results 24hrs Laboratory Tests Test 04/03/19 05:10 Sodium Level 135 Potassium Level 4.6 Chloride Level 106 Carbon Dioxide Level 20 L Anion Gap 9 Blood Urea Nitrogen 3 L Creatinine 0.45 Est Glomerular Filtrat Rate mL/min > 60 Glucose Level 107 Calcium Level 9.4 Total Bilirubin 0.5 Direct Bilirubin 0.00 Indirect Bilirubin 0.5 Aspartate Amino Transf (AST/SGOT) 127 H Alanine Aminotransferase (ALT/SGPT) 414 H Alkaline Phosphatase 49 Total Protein 6.9 Albumin 3.6 Globulin 3.30 H Albumin/Globulin Ratio 1.09 Exam/Review of Systems Exam Vitals Vital Signs Date Temp Pulse Resp B/P (MAP) Pulse Ox O2 O2 Flow FiO2 Time Delivery Rate 04/03/19 98.5 82 20 135/82 99 01:14 (99) Intake and Output 04/02/19 04/02/19 04/03/19 1515:00 23:00 07:00 IntakeIntake Total 480 ml 815 ml OutputOutput Total 200 ml BalanceBalance 480 ml 815 ml -200 ml Results Results 24hrs Laboratory Tests Test 04/03/19 05:10 Sodium Level 135 Potassium Level 4.6 Chloride Level 106 Carbon Dioxide Level 20 L Anion Gap 9 Blood Urea Nitrogen 3 L Creatinine 0.45 Est Glomerular Filtrat Rate mL/min > 60 Glucose Level 107 Calcium Level 9.4 Total Bilirubin 0.5 Direct Bilirubin 0.00 Indirect Bilirubin 0.5 Aspartate Amino Transf (AST/SGOT) 127 H Alanine Aminotransferase (ALT/SGPT) 414 H Alkaline Phosphatase 49 Total Protein 6.9 Albumin 3.6 Globulin 3.30 H Albumin/Globulin Ratio 1.09 Medications Medication Current Medications IV Flush (NS 3 ml) 3 ml PER PROTOCOL IV Last administered on 04/02/19at 13:51; Admin Dose 3 ML; Start 03/28/19 at 19:30 Acetaminophen (Tylenol Tab) 650 mg Q6H PRN PO .PAIN 1-3 OR TEMP Last administered on 03/29/19at 10:19; Admin Dose 650 MG; Start 03/28/19 at 19:30 Pyridoxine HCl (Vitamin B6) 100 mg DAILY PO Last administered on 04/03/19at 09:48; Admin Dose 100 MG; Start 03/29/19 at 18:00 Ondansetron HCl (Zofran Inj) 4 mg Q4H PRN IV NAUSEA AND/OR VOMITING; Start 03/29/19 at 18:00 Docusate Sodium (Colace) 200 mg BID PRN PO CONSTIPATION; Start 03/30/19 at 15:00 Bisacodyl (Dulcolax) 10 mg DAILY PRN PO CONSTIPATION; Start 03/30/19 at 15:00 Sucralfate (Carafate Susp) 1 gm QID PO Last administered on 04/03/19 15:20; Admin Dose 1 GM; Start 03/31/19 at 17:00 Famotidine (Pepcid) 20 mg BID PO Last administered on 04/03/19 09:48; Admin D ose 20 MG; Start 03/31/19 at 21:00 Potassium Chloride (Klor-Con 20) 40 meq TID PO Last administered on 04/03/19 15:20; Admin Dose 40 MEQ; Start 04/01/19 at 09:00 Potassium Chloride/Dextrose/ Sod Cl 1,000 ml @ 50 mls/hr Q20H IV Last administered on 04/01/19at 22:28; Admin Dose 50 MLS/HR; Start 04/01/19 at 20:30 Labetalol HCl (Normodyne) 100 mg BID PO Last administered on 04/03/19 09:57; Admin Dose 100 MG; Start 04/01/19 at 21:00 Metoclopramide HCl (Reglan) 5 mg Q6H PRN PO NAUSEA AND/OR VOMITING; Start 04/02/19 at 17:30 SHIRAZ TORRES Apr 03, 2019 17:09
== END 2019-04-03 18:05 | disposition home or self-care (01) | DRG 832 ==
LOC: E/R 16:13 → 2NE 19:22
PROVIDERS: ADMIT Internal Medicine; ATTEND Internal Medicine
DX: O21.0 Mild hyperemesis gravidarum (principal); K92.0 Hematemesis; O20.9 Hemorrhage in early pregnancy, unspecified; Z3A.11 11 weeks gestation of pregnancy; D64.9 Anemia, unspecified; K80.20 Calculus of gallbladder without cholecystitis without obstruction; E87.6 Hypokalemia; O26.891 Other specified pregnancy related conditions, first trimester; K21.9 Gastro-esophageal reflux disease without esophagitis
CPT/HCPCS: 36415; 76700; 76801; 80053; 80061; 81001; 81025; 82140; 83036; 83690; 83735; 84100; 84132; 84443; 85025; 85610; 86038; 86255; 86704; 86706; 86708; 86709; 86803; 86900; 86901; 87086; 87338; 87340; J0780; J2405; J2765; J3411; J3480; J7030; J7042

== ENCOUNTER 2019-04-24 12:03 | Emergency (ER) | payer OTHER ==
[~2019-04-24] VITALS: Ht 157.5 cm; Wt 67.3 kg
[~2019-04-24 12:03] MED LIST: METO5TAB2 PO
[2019-04-24 12:19] VITALS: Ht 157.5 cm; Wt 67.3 kg
[2019-04-24] MEDS ORDERED: DEXTROSE 5%-0.45% NACL 1,000 ML IV SCH (13:00)
[2019-04-24] MEDS ORDERED: METOCLOPRAMIDE 10 MG INJ IV ONE (13:00)
--- NOTE | 2019-04-24 13:19 | ERD ---
ER Documentation Chief Complaint Chief Complaint 'nonstop' vomiting x1wk; unable to keep water down. 13wks HPI 39-year-old female with no past medical or surgical history G4, P1 currently 13 weeks , Hx gallstones who presents with complaint of persistent nausea and vomiting over the past week. Report of bloody type emesis during most recent episodes of vomiting. Patient states she was recently hospitalized from March 27- for similar symptoms treated with IV fluids and other symptomatic care. Was seen at [facility] ED for similar symptoms on treated with IV fluids and symptomatic medications and discharge from the emergency room. Had transaminitis which improved, hypokalemia, U/S showed gallstones with no cholecystitis. Also diagnosed with US revealed a small subchorionic hemorrhage to start aspirin at 16 weeks gestation. She otherwise denies chest pain, shortness of breath, dyspnea, muscle aches, fevers, chills, pelvic or abdominal pain, vaginal bleeding, dysuria. Also report that she fell while trying to go to the bathroom to vomit earlier today on the right hip. She denies any pain at site currently and denies any issues with ambulation. ROS All systems reviewed and are negative except as per history of present illness. Medications Home Meds Active Scripts Metoclopramide Hcl* (Metoclopramide Hcl*) 5 Mg Tablet, 5 MG PO Q6H PRN for NAUSEA AND/OR VOMITING for 10 Days, TAB Prov:JAELYN MANCERA MD 04/03/19 Allergies Allergies: Coded Allergies: No Known Allergy (Unverified , 03/28/19) PMhx/Soc Medical and Surgical Hx: pt denies Medical Hx, pt denies Surgical Hx History of Surgery: No Anesthesia Reaction: No Hx Neurological Disorder: No Hx Respiratory Disorders: No Hx Cardiac Disorders: No Hx Psychiatric Problems: No Hx Miscellaneous Medical Probl: No Hx Alcohol Use: No Hx Substance Use: No Hx Tobacco Use: No Smoking Status: Never smoker FmHx Family History: No diabetes, No coronary disease, No other Physical Exam Vitals Vital Signs Date Temp Pulse Resp B/P (MAP) Pulse Ox O2 O2 Flow FiO2 Time Delivery Rate 04/24/19 99 18 118/68 100 Room Air 16:14 (85) 04/24/19 98.5 107 16 124/82 97 12:19 (96) Physical Exam I have reviewed the triage vital signs. Const: Well nourished, well developed, appears stated age Eyes: PERRL, no conjunctival injection HENT: NCAT, Neck supple without meningismus CV: RRR, Warm, well-perfused extremities RESP: CTAB, Unlabored respiratory effort GI: Gravid, soft, non-tender, non-distended, no masses MSK: No gross deformities appreciated Skin: Warm, dry. No rashes, good capillary refill to distal extremities Neuro: grossly non focal Psych: Appropriate mood and affect. Result Diagram: 04/24/19 1312 04/24/19 1311 Results 24 hrs Laboratory Tests Test 04/24/19 13:11 04/24/19 13:12 Sodium Level 133 mmol/L Potassium Level 3.7 mmol/L Chloride Level 102 mmol/L Carbon Dioxide Level 20 mmol/L Anion Gap 11 Blood Urea Nitrogen 6 mg/dl Creatinine 0.45 mg/dl Est Glomerular Filtrat Rate mL/min > 60 mL/min Glucose Level 96 mg/dl Calcium Level 9.6 mg/dl Total Bilirubin 0.6 mg/dl Direct Bilirubin 0.00 mg/dl Indirect Bilirubin 0.6 mg/dl Aspartate Amino Transf (AST/SGOT) 248 IU/L Alanine Aminotransferase (ALT/SGPT) 433 IU/L Alkaline Phosphatase 60 IU/L Total Protein 7.5 g/dl Albumin 3.7 g/dl Globulin 3.80 g/dl Albumin/Globulin Ratio 0.97 Lipase 56 U/L White Blood Count 7.2 10^3/ul Red Blood Count 4.31 10^6/ul Hemoglobin 12.5 g/dl Hematocrit 37.2 % Mean Corpuscular Volume 86.3 fl Mean Corpuscular Hemoglobin 29.0 pg Mean Corpuscular Hemoglobin Concent 33.6 g/dl Red Cell Distribution Width 13.8 % Platelet Count 196 10^3/UL Mean Platelet Volume 11.2 fl Immature Granulocytes % 0.300 % Neutrophils % 66.8 % Lymphocytes % 25.8 % Monocytes % 6.5 % Eosinophils % 0.3 % Basophils % 0.3 % Nucleated Red Blood Cells % 0.0 /100WBC Immature Granulocytes # 0.020 10^3/ul Neutrophils # 4.8 10^3/ul Lymphocytes # 1.9 10^3/ul Monocytes # 0.5 10^3/ul Eosinophils # 0.0 10^3/ul Basophils # 0.0 10^3/ul Nucleated Red Blood Cells # 0.0 10^3/ul Current Medications Medications Dose Sig/Robyn Start Time Status Last (Trade) Ordered Route PRN Stop Time Admin Dose Reason Admin 1,000 ml @ Q8H IV 04/24/19 DC 04/24/19 Dextrose/Sodi 125 mls/hr 13:00 13:22 um Chloride 04/24/19 16:16 10 mg ONCE ONCE 04/24/19 DC 04/24/19 Metoclopramid IV 13:00 13:22 e HCl 04/24/19 13:05 (Reglan) Procedures/MDM 39-year-old female with hyperemesis gravidarum who presents with persistent nausea and vomiting. ED course: D5 half NS 1 L Reglan 10 mg IV Labs: Unremarkable, sodium 133 Reassessment: Patient improved with IV fluids and symptomatic treatment, clear for discharge home with close PMD follow-up DISPOSITION PLAN: We discussed follow up with the patient's primary care doctor within 24 to 48 ho urs. Patient counseled regarding my diagnostic impression and care plan. Prior to discharge all questions answered. Pt agrees with treatment plan and understands strict return precautions. Precautionary instructions provided including instructions to return to the ER if not improving or for any worsening or changing symptoms or concerns. Disclaimer: Inadvertent spelling and grammatical errors are likely due to EHR/dictation software use and do not reflect on the overall quality of patient care. Also, please note that the electronic time recorded on this note does not necessarily reflect the actual time of the patient encounter. Departure Diagnosis: Primary Impression: Nausea and vomiting Condition: Stable Patient Instructions: Hyperemesis Gravidarum Additional Instructions: Call your primary care doctor TOMORROW for an appointment during the next 2-3 days.See the doctor sooner or return here if your condition worsens before your appointment time. BILLY BRADLEY PA-C Apr 24, 2019 13:19
[2019-04-24 16:14] VITALS: BP 118/68; PULSE 99; RESP 18
== END 2019-04-24 16:16 | disposition home or self-care (01) ==
LOC: FTE 12:03
DX: O21.9 Vomiting of pregnancy, unspecified (principal); Z3A.13 13 weeks gestation of pregnancy
CPT/HCPCS: 36415; 80053; 83690; 85025; 96374; J2765; J7042; Z7502